=== PATIENT | female | born 1980 | race Caucasian/White ===

== ENCOUNTER 2021-12-28 17:07 | Inpatient (IN) | payer OTHER, SELFPAY ==
[2021-12-28] VITALS (28 sets, daily range): BP systolic 107–216; BP diastolic 75–119; PULSE 70–95; RESP 13–27; TEMP 36.1–36.6; O2SAT 2–100; BMI 35.3; BMI 32.9
--- NOTE | 2021-12-28 17:10 | CT_ITS ---
We are attempting to reach an attending provider to discuss findings. An addendum with communication details will be sent when the communication is complete. EXAMINATION : Head CT w/out contrast HISTORY : Neuro deficit, acute, stroke suspected COMPARISON : None. TECHNIQUE : Multiple contiguous axial images were obtained from the skull base to the vertex without intravenous contrast. A radiation dose optimization technique was used for this scan. FINDINGS : The ventricles and sulci are normal in size. There is no evidence for acute intracranial hemorrhage, mass effect, or midline shift. There is no extra-axial fluid collection. There is normal young-white differentiation, without CT evidence of acute ischemia or infarct. The skull base and calvarium are unremarkable. The orbits are unremarkable. The paranasal sinuses are clear. The mastoid air cells are well-aerated. The soft tissues are unremarkable. CT/STROKE Brain/Head without Cont IMPRESSION: No acute intracranial abnormality. Electronically Signed: Donald Jimenez MD at 17:20 EDT ,
--- NOTE | 2021-12-28 17:10 | EKG12_ITS ---
Test Reason : STROKE Blood Pressure : / mmHG Vent. Rate : 078 BPM Atrial Rate : 078 BPM P-R Int : 156 ms QRS Dur : 076 ms QT Int : 378 ms P-R-T Axes : 038 046 148 degrees QTc Int : 430 ms Normal sinus rhythm Possible Left atrial enlargement ST & T wave abnormality, consider lateral ischemia Abnormal ECG No previous ECGs available Confirmed by JAMES LEVIN, JONATHAN ([id number]), marketing editor VIKAS BOYLE ([id number]) on 12/31/2021 7:19:35 AM Referred By: BAM Confirmed By:JONATHAN RAMIREZ MD
--- NOTE | 2021-12-28 17:11 | CT_ITS ---
We are attempting to reach an attending provider to discuss findings. An addendum with communication details will be sent when the communication is complete. STUDY: CTA HEAD AND NECK WITH CONTRAST REASON FOR EXAM: Female, 41 years old. Right-sided weakness. RADIATION DOSAGE (If Supplied By Facility): CTDIvol = ( 17.80 ) mGy, DLP = ( 698.44 ) mGycm TECHNIQUE: CT angiography was performed with a multi-detector CT scanner. Data acquisition was obtained from the skull base through the vertex following intravenous administration of IV 100mL Isovue-[id number]. MIP images were reconstructed from the axial data set. Post-processing of the angiographic images was performed, with multiplanar reformation and 3D reconstruction. Individualized dose optimization techniques were used for this CT. COMPARISON: CT of the head, December 28, 2021. FINDINGS: Normal bilateral petrous carotid arteries. Normal right cavernous carotid artery with a normal supraclinoid bifurcation. Normal left cavernous carotid artery with a normal supraclinoid bifurcation. Normal right A1 segments of the anterior cerebral artery. Normal left A1 segments of the anterior cerebral artery. Normal intact anterior communicating artery (ACOM). Normal bilateral A2 segments of the anterior cerebral arteries. Normal right M1 and M2 segments of the middle cerebral arteries, with a normal M1 bifurcation. Normal left M1 and M2 segments of the middle cerebral arteries, with a normal M1 bifurcation. Normal right posterior communicating artery (PCOM). Normal left posterior communicating artery (PCOM). Normal bilateral vertebral arteries. Normal basilar artery with a normal basilar bifurcation. The visualized bilateral superior cerebellar (SCA) arteries are normal. Normal bilateral P1, P2 and visualized P3 segments of the posterior cerebral arteries. There is no demonstrated aneurysm of the [place] of [place]. There is no demonstrated abnormality of the visualized brain. AORTIC ARCH: Normal visualized aortic arch. Normal origins of the brachiocephalic, left common carotid, and left subclavian arteries. RIGHT CAROTID ARTERIES: Normal right common carotid artery (CCA). Normal right common carotid bulb. Normal origin of the right internal carotid (ICA) artery without a hemodynamically significant stenosis. Tortuous visualized cervical portion of the right internal carotid artery. Normal origin of the right external carotid artery (ECA). LEFT CAROTID ARTERIES: Normal left common carotid artery (CCA). Normal left common carotid bulb. Normal origin of the left internal carotid (ICA) artery without a hemodynamically significant stenosis. Tortuous visualized cervical portion of the left internal carotid artery. Normal origin of the left external carotid artery (ECA). VERTEBRAL ARTERIES: Normal bilateral vertebral arteries. The left is slightly dominant. CT/STROKE CTA Head AND Neck W/Con IMPRESSION: Normal CTA Head and neck with contrast. Electronically Signed: Cosme Odom DO at 17:39 EDT ,
--- NOTE | 2021-12-28 17:11 | EDS_ITS ---
HPI History of Present Illness Chief Complaint: Stroke Alert Narrative Narrative: 41-year-old female with no past history comes in with acute onset of right-sided facial droop, right-sided weakness. Symptoms have been constant, severe without alleviating exacerbating features. Last known well was 1630. PFSH PFSH Medical History Obesity Tobacco use Medical History no medical history no medical history Allergy/AdvReac Type Severity Reaction Status Date / Time peanut Allergy PT UNSURE Verified 12/28/21 17:15 OF REACTION Penicillins Allergy PT UNSURE Verified 12/28/21 17:15 OF REACTION Family History (Updated 12/28/21 @ 18:[address] Brii Pryor MD) Mother Diabetes Family History no significant family his no significant family history Surgical History (Updated 12/28/21 @ 18:[address] Brii Pryor MD) History of dental surgery Surgical History no surgical history no surgical history Social History (Updated 12/28/21 @ 18:[address] Brii Pryor MD) household members: spouse Smoking Status: Current every day smoker tobacco type: cigarettes Smoking packs per day: 1 Smoking cigarettes per day: 20.0 Years smoked: 27 Smoking pack-years: 27.00 alcohol intake: never substance use type: does not use ROS ROS ED ROS Narrative Constitutional: Denies fever HEENT: Denies sore throat Neck: Denies neck pain Cardiovascular: Denies chest pain, syncope Respiratory: Denies shortness of breath GI: Denies nausea vomiting or abdominal pain : Denies changes in urinary habits Musculoskeletal: Denies muscle or joint pain Neurologic: Endorses right-sided weakness, facial drooping, dysarthria Skin denies rash EXAM Physical Exam Narrative Exam Narrative: Nursing triage notes reviewed, Vital signs reviewed Constitutional: please see mdm HENT: MMM Eyes: Pupils equal round and reactive to light, Extraocular muscles intact Neck: No stridor, no JVD, full neck ROM Lungs: Clear to auscultation, No wheezing or rales. No increased work of breathing, no conversational dyspnea, no accessory muscle use, no nasal flaring. No respiratory distress noted Heart: Regular rate and rhythm, No murmurs, No rubs and No gallops, 2+ distal pulses (radial, femoral, posterior tibial) in all extremities Abdomen: Soft, there is no tenderness, rigidity, rebound or guarding, no obvious peritoneal signs, no palpable pulsatile abdominal masses, no auscultated abdominal bruit : No CVAT Extremities: No edema Neuro: Right-sided facial droop, slurred speech, right upper arm weakness, flaccid right lower extremity, initial NIH 6 Skin: No rash or lesions noted Const Vital Signs: 12/28/21 17:14 12/28/21 17:16 12/28/21 17:20 Temperature 97 F L Temperature Source Temporal Pulse Rate 83 95 Respiratory Rate 18 27 H Blood Pressure 184/119 H 216/103 H Blood Pressure Mean 140 140 Blood Pressure Source Blood Pressure Position Blood Pressure Location Pulse Ox 97 97 95 Oxygen Delivery Method Nasal Cannula Nasal Cannula Room Air Oxygen Flow Rate (L/min) 2 2 12/28/21 17:20 12/28/21 17:40 12/28/21 17:48 Temperature Temperature Source Pulse Rate 95 77 72 Respiratory Rate 27 H 13 18 Blood Pressure 216/103 H 190/112 H 190/111 H Blood Pressure Mean 140 138 137 Blood Pressure Source Blood Pressure Position Blood Pressure Location Pulse Ox 95 99 99 Oxygen Delivery Method Room Air Nasal Cannula Nasal Cannula Oxygen Flow Rate (L/min) 2 2 12/28/21 18:06 12/28/21 18:12 12/28/21 18:06 Temperature Temperature Source Pulse Rate 72 Respiratory Rate 18 Blood Pressure 177/106 H 177/106 H 177/106 H Blood Pressure Mean 129 129 Blood Pressure Source Blood Pressure Position Blood Pressure Location Pulse Ox 98 Oxygen Delivery Method Room Air Oxygen Flow Rate (L/min) 12/28/21 18:25 Temperature Temperature Source Pulse Rate 74 Respiratory Rate 18 Blood Pressure 154/107 H Blood Pressure Mean 122 Blood Pressure Source Monitor Blood Pressure Position Semi-Fowlers Blood Pressure Location Right Arm Pulse Ox 97 Oxygen Delivery Method Nasal Cannula Oxygen Flow Rate (L/min) 2 MDM MDM MDM Narrative Medical decision making narrative: 41-year-old female here with acute onset of right-sided facial droop, right- sided weakness, initial NIHSS of 6. She was within the stroke window. She was not on any anticoagulation no obviously apparent tPA contraindications. Activated stroke team immediately. IV placed by EMS. Upon arrival the patient was sent directly to CT scan. CT, CT of the head neck scans showed no acute process, no ICH. Consulted stroke neurology immediately. Stroke neurology evaluate the patient at the bedside and recommended no tPA. On re-evaluation the patient again developed focal neurologic deficits concerning for acute CVA. This time patient's blood pressure was noted to be 220 systolic over 110s diastolic. Concern for hypertensive emergency. Did give 1 dose of 20 mg labetalol to decrease the patient's blood pressure approximately 20%, in an attempt to preserve the ischemic penumbra. This was successful the patient's neurologic deficits resolved with a repeat NIHSS of 0. Several minutes later was called back into the room as patient again had focal neurologic deficits with NIH of 5 this point time patient displayed slurred speech, dominant hand weakness, dysarthria, facial droop. Given significant findings I recommended tPA for the patient. I did not want to continue to delay tPA as its efficacy decreases with time. Shared decision making discussion was undertaken with the patient and her . They displayed capacity to make their own medical decisions and made the decision in the affirmative to undergo tPA treatment. I thought this is the best decision as the longer we delay tPA treatment the less likely to be beneficial. Patient was given tPA. Admitted to ICU under Dr. Pryor for post TPA care, MRI, telemetry. Lab Data Attestation: I reviewed the patient's lab results. Lab results narrative: CBC with leukocytosis suggestive of systemic inflammation, no sniffing anemia, no thrombocytopenia PT, INR, PTT without evidence of coagulopathy BMP without evidence of significant electrolyte abnormalities, anion gap acute kidney Troponin is negative, no evidence of myocardial ischemia Labs: Laboratory Results - last 24 hr 12/28/21 12/28/21 12/28/21 17:12 17:12 17:12 WBC 17.2 H RBC 5.03 Hgb 15.1 H Hct 44.1 MCV 87.7 MCH 30.0 MCHC 34.2 RDW Std Deviation 44.4 H RDW Coeff of Stacy 13.6 Plt Count 339 MPV 10.2 Immature Gran % (Auto) 0.500 Neut % (Auto) 67.1 Lymph % (Auto) 23.5 Mineral % (Auto) 7.0 Eos % (Auto) 1.5 Baso % (Auto) 0.4 Absolute Neuts (auto) 11.6 H Absolute Lymphs (auto) 4.04 Nucleated RBC % 0 PT 12.6 INR 1.0 APTT 28.6 Sodium 137 Potassium 3.7 Chloride 106 Carbon Dioxide 27.0 Anion Gap 4 L BUN 9 Creatinine 0.79 Estim Creat Clear Calc 83.48 Est GFR (MDRD) Af Amer 103 Est GFR (MDRD) Non-Af 85 BUN/Creatinine Ratio 11.4 Glucose 110 H Hemoglobin A1c Calcium 9.8 Magnesium Troponin I High Sens 8 TSH COVID-19 ([facility]INA) 12/28/21 12/28/21 12/28/21 17:12 17:12 17:50 WBC RBC Hgb Hct MCV MCH MCHC RDW Std Deviation RDW Coeff of Stacy Plt Count MPV Immature Gran % (Auto) Neut % (Auto) Lymph % (Auto) Mineral % (Auto) Eos % (Auto) Baso % (Auto) Absolute Neuts (auto) Absolute Lymphs (auto) Nucleated RBC % PT INR APTT Sodium Potassium Chloride Carbon Dioxide Anion Gap BUN Creatinine Estim Creat Clear Calc Est GFR (MDRD) Af Amer Est GFR (MDRD) Non-Af BUN/Creatinine Ratio Glucose Hemoglobin A1c 6.1 H Calcium Magnesium 2.1 Troponin I High Sens TSH 1.49 COVID-19 ([facility]INA) Not Detected Radiography Diagnostic Testing: Clinical Impression(s) from Imaging Studies Brain CT 12/28/21 17:10 IMPRESSION: No acute intracranial abnormality. Electronically Signed: Donald Jimenez MD at 17:20 EDT , ADDENDUM: 12/28/21 1731 IMPRESSION: No acute intracranial abnormality. N.B. : The above Results were Read Back by Donald Jimenez MD to MURIEL MONREAL MD, and understanding confirmed on 12/28/2021 17:24:17 (ET). Electronically Signed: Donald Jimenez MD at 17:20 EDT , Head/Neck CTA 12/28/21 17:11 IMPRESSION: Normal CTA Head and neck with contrast. Electronically Signed: Cosme Odom DO at 17:39 EDT Reading Location ID and State: [facility] / [place] Tel [phone], Service support , ADDENDUM: 12/28/21 1746 IMPRESSION: Normal CTA Head and neck with contrast. N.B. : The above Results were Read Back by Cosme Odom DO to MURIEL MONREAL MD, and understanding confirmed on 12/28/2021 17:39:28 (ET). Electronically Signed: Cosme Odom DO at 17:39 EDT Reading Location ID and State: [address] [place] [address] Tel [phone], Service support , EKG Initial EKG: Attestation: I personally reviewed and interpreted this EKG as follows: Comments: EKG Critical Care Time Critical Care Time: Yes Critical care time (excluding procedures): 30-74 minutes Discharge Plan Dx/Rx/DC Orders Clinical Impression: CVA (cerebral vascular accident) Disposition Disposition: Acute Care Hospital [facility] Discharge Date/Time: 12/28/21 18:55
[2021-12-28 17:19] LABS: Absolute Lymphocyte Count 4.04 X10^3/uL (0.83-4.51); Absolute Neutrophil Count 11.6 X10^3/uL (2.0-7.7); Basophil# 0.07 X10^3/uL; Basophil% 0.4 % (0-1); Eosinophil# 0.26 X10^3/uL; Eosinophils% 1.5 % (0-5); Hematocrit 44.1 % (37-47); Hemoglobin 15.1 g/dL (12.0-15.0); Lymphocyte # 4.04 X10^3/ul (0.83-4.51); Lymphocyte % 23.5 % (19-41); Mean Corp Hgb Conc 34.2 g/dL (32-36); Mean Corpuscular Volume 87.7 fL (81-99); Mean Platelet Vol. 10.2 fl (6.2-12.0); Monocyte# 1.21 X10^3/uL; NRBC Flagged by Analyzer 0 % (0-5); Neutrophil # 11.55 X10^3/uL (2.7-7.7); Neutrophil % 67.1 % (47-70); Platelet Count 339 K/mm3 (150-450); RBC Distribution Width CV 13.6 % (11.6-14.6); RBC Distribution Width SD 44.4 fl (35.1-43.9); Red Blood Count 5.03 M/mm3 (4.2-5.4); White Blood Count 17.2 K/mm3 (4.4-11.0)
[2021-12-28] MEDS: Ondansetron 4 MG/2 ML Vial IV (17:23)
--- NOTE | 2021-12-28 17:27 | ED.RN ---
WHEN DR LORA EVALUATED THE PT IN THE BAY BEFORE CT SCAN, PT HAD NIH OF 6. Right sided weakness and slurred speech. When NIH was performed when pt returned back to room, NIH was 1 for dysarthia. currently on telestroke with [facility]
[2021-12-28 17:29] LABS: Prothrombin Time (Protime)PT. 12.6 SECONDS (11.7-14.9)
[2021-12-28 17:30] LABS: Partial Thromboplast Time 28.6 Seconds (24.1-36.2)
--- NOTE | 2021-12-28 17:30 | CM.ED ---
Social Work Responding to stroke alert. Patient alert and orient/talking with staff. Patient spouse present and presenting appropriately. Will continue to follow if any needs arise. Janette Gonzalez MSW, FLO-S
[2021-12-28] MEDS: Labetalol (Prefilled) 20 MG/4 ML IV (17:34)
[2021-12-28 17:39] LABS: Anion Gap 4 (5-15); BUN 9 mg/dL (7-18); BUN/Creat Ratio 11.4 RATIO (10-20); Calcium,Total 9.8 mg/dL (8.5-10.1); Chloride 106 mmol/L (98-107); Creatinine, Serum 0.79 mg/dL (0.55-1.02); EST Glomerular Filtration Rate 85 mL/min (>60); Est Glom Filt Rate - Afr Amer 103 mL/min (>60); Estimated Creatinine Clearance 83.48 ml/min; Glucose 110 mg/dL (74-106); Potassium 3.7 mmol/L (3.5-5.1); Sodium Level 137 mmol/L (136-145); Troponin-I HS 8 pg/mL (3.0-54.0)
--- NOTE | 2021-12-28 17:40 | ED.RN ---
1740- NIH IS 0 BP 190/112. PER DR LORA, NO NEED FOR MORE LABETALOL AT THE MOMENT. NO TPA
--- NOTE | 2021-12-28 17:51 | ED.RN ---
DR MADELYN RUIZ AT BEDSIDE, PT BEGAN TO HAVE SLURRED SPEECH AGAIN, RIGHT SIDED WEAKNESS, AND RIGHT FACIAL DROOP. DR MONREAL CALLED TO BEDSIDE.
[2021-12-28] MEDS: Labetalol (Prefilled) 20 MG/4 ML 10 MG IV ×2 (17:57→18:19)
--- NOTE | 2021-12-28 18:06 | PCM.HP.STD ---
HPI - General General Date of Admission: 12/28/21 Date of Service: 12/28/21 Chief Complaint: R sided weakness, facial droop, slurred speech. HPI Narrative The patient is a 41 y/o F w/ PMHx: Tobacco use, Obesity who presents to the [facility] ED on 12/28/21 with history of onset R sided weakness and facial droop with last known well at 1630 on day of presentation prompting ED evaluation. Initial NIHSS 6 per ED physician however patient did wax and wane and was initially improved upon Hospitalist evaluation but had recurrent sxs with NIHSS 5 therefore decision to initiate TPA given closing window and frequently recurrent sxs that would be life long debilitating. She does recent history of upper respiratory type infection with frontal headache, congestion, rhinorrhea, sore throat with mild cough, fatigue and malaise with no specific fevers or chills nor any nausea, emesis or diarrhea and does also report that she has never been vaccinated against COVID. Her who is present denies any recent symptoms himself. She denies taking any control. Work-up in the ED included T 97, heart rate 83, BP 184/119, respiratory rate 18, 97% on 2 L nasal cannula, CBC with WBC 17.2, Hgb 15.2, Plts 339 with L shift, coags unremarkable, BMP with glucose 110, troponin 8, EKG with sinus rhythm with nonspecific changes with no acute evidence of ischemia CT head with no acute intracranial findings, CTA head and neck with no acute findings. In the ED patient initiated on TPA. Stroke alert called on the patient and as noted initially given improvement deferred TPA but given recurrent sxs pathway eventually initiated. Discussed current status with ED physician and given age requested COVID PCR, urine drug screen and hypercoagulable panel to be cautious as well as given limitation of inability to draw labs. [facility] Medical History Obesity Tobacco use Medical History no medical history Allergy/AdvReac Type Severity Reaction Status Date / Time peanut Allergy PT UNSURE Verified 12/28/21 17:15 OF REACTION Penicillins Allergy PT UNSURE Verified 12/28/21 17:15 OF REACTION Family History (Updated 12/28/21 @ 18:[address] Brii Pryor MD) Mother Diabetes Family History no significant family his other (Denies any marked paternal family history including HD, DM, CA, CVA.) Surgical History (Updated 12/28/21 @ 18:[address] Brii Pryor MD) History of dental surgery Surgical History no surgical history Social History (Updated 12/28/21 @ 18:[address] Brii Pryor MD) household members: spouse Smoking Status: Current every day smoker tobacco type: cigarettes Smoking packs per day: 1 Smoking cigarettes per day: 20.0 Years smoked: 27 Smoking pack-years: 27.00 alcohol intake: never substance use type: does not use ROS ROS Narrative Admission Review of Systems: CONSTITUTIONAL: No weight loss, fever, chills, + weakness or fatigue. HEENT: + R sided facial droop, slurred speech, recent frontal [place], congestion, sore throat, rhinorrhea. Eyes: No visual loss, blurred vision, double vision or yellow sclerae. Ears, Nose, Throat: No hearing loss, sneezing. SKIN: No rash or itching, lesions, wounds. CARDIOVASCULAR: No chest pain, chest pressure or chest discomfort, palpitations, edema, orthopnea, syncopal events. RESPIRATORY: = Cough. No shortness of breath, wheezing, hemoptysis. GASTROINTESTINAL: No anorexia, nausea, vomiting or diarrhea, abdominal pain, melena, BRBPR. GENITOURINARY: No dysuria, frequency, urgency or retention. NEUROLOGICAL: + R sided facial droop, slurred speech, R sided paresthesias, weakness, headache. No dizziness, syncope, paralysis, ataxia, change in bowel or bladder control, seizure. MUSCULOSKELETAL:+ muscle, back pain, joint pain or stiffness. HEMATOLOGIC: No anemia, bleeding or bruising. LYMPHATICS: No enlarged nodes. No history of splenectomy. PSYCHIATRIC: No history of depression or anxiety. ENDOCRINOLOGIC: No reports of sweating, cold or heat intolerance. No polyuria or polydipsia. ALLERGIES: No history of asthma, hives, eczema or rhinitis. Vital Signs Vital Signs Vital Signs: 12/28/21 17:14 12/28/21 17:16 12/28/21 17:20 Temperature 97 F L Temperature Source Temporal Pulse Rate 83 95 Respiratory Rate 18 27 H Blood Pressure 184/119 H 216/103 H Blood Pressure Mean 140 140 Pulse Ox 97 97 95 Oxygen Delivery Method Nasal Cannula Nasal Cannula Room Air Oxygen Flow Rate (L/min) 2 2 12/28/21 17:20 12/28/21 17:40 12/28/21 17:48 Temperature Temperature Source Pulse Rate 95 77 72 Respiratory Rate 27 H 13 18 Blood Pressure 216/103 H 190/112 H 190/111 H Blood Pressure Mean 140 138 137 Pulse Ox 95 99 99 Oxygen Delivery Method Room Air Nasal Cannula Nasal Cannula Oxygen Flow Rate (L/min) 2 2 12/28/21 18:06 Temperature Temperature Source Pulse Rate Respiratory Rate Blood Pressure 177/106 H Blood Pressure Mean 129 Pulse Ox Oxygen Delivery Method Oxygen Flow Rate (L/min) Weight Weight: 212 lb 4.882 oz Body Mass Index (BMI) 35.3 Physical Exam Narrative Physical Examination: General: Awake, alert, oriented x 3, slurred speech as recurrent symptoms with evident right-sided facial droop, remains cooperative, anxious expectantly, seated upright in the ED bed. Skin: Normal color, normal turgor, no icterus, no cyanosis. HEENT: AT/NC, EOMI, PERRLA, MMM, right-sided facial droop more pronounced with smiling, poor dentition with significant dental surgery history, no carotid bruits or JVD noted. Lungs: Mildly diminished, greater bases, appropriate effort no rales, ronchi or wheezing. Heart: Regular rate and rhythm; no gallop, rub audible. Abdomen: Soft, obese, NTTP, ND, normal BS, no HSM. Extremities: No cyanosis, clubbing, or edema. Neurological: Patient awake, alert, oriented as noted, cognitive function intact but very anxious given acute presentation; pupils equally reactive to light and accommodation, field of vision intact, cranial nerves grossly intact except notable right-sided facial droop and sensation decreased to the right side, moving all extremities except right upper and lower extremity drift, sensation to the right side in addition to the face decreased, altered slurred speech is noted, equivocal Babinski, appropriate HTS/FTS although somewhat more perfunctory on the right side. Psychiatric: Affect appears anxious given acute presentation, no history of underlying depression anxiety but given circumstance this presentation is expected. Results Lab / Micro Data Result Diagrams: 12/28/21 17:12 12/28/21 17:12 Labs: Laboratory Results - last 24 hr 12/28/21 17:12: WBC 17.2 H, RBC 5.03, Hgb 15.1 H, Hct 44.1, MCV 87.7, MCH 30.0, MCHC 34.2, RDW Std Deviation 44.4 H, RDW Coeff of Stacy 13.6, Plt Count 339, MPV 10.2, Immature Gran % (Auto) 0.500, Neut % (Auto) 67.1, Lymph % (Auto) 23.5, [place] % (Auto) 7.0, Eos % (Auto) 1.5, Baso % (Auto) 0.4, Absolute Neuts (auto) 11.6 H, Absolute Lymphs (auto) 4.04, Nucleated RBC % 0 12/28/21 17:12: PT 12.6, INR 1.0, APTT 28.6 12/28/21 17:12: Sodium 137, Potassium 3.7, Chloride 106, Carbon Dioxide 27.0, Anion Gap 4 L, BUN 9, Creatinine 0.79, Estim Creat Clear Calc 83.48, Est GFR (MDRD) Af Amer 103, Est GFR (MDRD) Non-Af 85, BUN/Creatinine Ratio 11.4, Glucose 110 H, Calcium 9.8, Troponin I High Sens [address] 12/28/21 17:10 IMPRESSION: No acute intracranial abnormality. Electronically Signed: Donald Jimenez MD at 17:20 EDT , ADDENDUM: 12/28/21 1731 IMPRESSION: No acute intracranial abnormality. N.B. : The above Results were Read Back by Donald Jimenez MD to MURIEL MONREAL MD, and understanding confirmed on 12/28/2021 17:24:17 (ET). Electronically Signed: Donald Jimenez MD at 17:20 EDT , Head/Neck CTA 12/28/21 17:11 IMPRESSION: Normal CTA Head and neck with contrast. Electronically Signed: Cosme Odom DO at 17:39 EDT Reading Location ID and State: [facility] / [place] Tel [phone], Service support , ADDENDUM: 12/28/21 1746 IMPRESSION: Normal CTA Head and neck with contrast. N.B. : The above Results were Read Back by Cosme Odom DO to MURIEL MONREAL MD, and understanding confirmed on 12/28/2021 17:39:28 (ET). Electronically Signed: Cosme Odom DO at 17:39 EDT Reading Location ID and State: [facility] / [place] Tel [phone], Service support , Assessment & Plan Assessment/Plan (1) CVA (cerebral vascular accident): PLAN: Plan The patient is a 41 y/o F w/ PMHx: Tobacco use, Obesity who presents to the [facility] ED on 12/28/21 with history of onset R sided weakness and facial droop with last known well at 1630 on day of presentation prompting ED evaluation initially NIH stroke scale 6 however waxed and waned with eventual tPA administration. #1. Right-sided weakness, right-sided facial droop concerning for CVA: Will admit to the ICU, will obtain MRI Brain, ECHO, PT/OT/Speech/Nutrition evaluation per protocol. Will allow permissive HTN with as needed agents per stroke protocol, given current presentation and tPA candidate will hold on aspirin administration until repeat CT head in 24 hours following tPA administration although as noted we will also order MRI and if MRI is obtained at 24 kusum would not need an additional CT head at that time, add high-dose statin, magnesium, TSH, FLP, HgbA1c requested. Maintain on aspiration and fall precautions. UDS as well as hypercoagulable panel and COVID PCR to be cautious. We will request reconsultation with neurology just prior to the 24-hour kusum per protocol. #2. Elevated BP without HTN diagnosis, possible HTN Emergency given #1 given lower risk factors for acute presentation but awaiting full work-up: Given presentation will maintain permissive HTN with treatment parameters per stroke procotol in the setting of TPA treatment with at this time usage of potentially Cardene drip given significantly elevated blood pressure and tPA administration with IV Lopressor administered in the ED with some improvement in order to consider tPA administration. #3. Recent URI, possibly acute COVID viral syndrome: Patient with recent upper respiratory type symptoms, possibly COVID, COVID PCR is pending if positive would also obtain sputum cultures, full respiratory viral panel and urine antigens, obtain D-dimer, procalcitonin, CRP, CPK, Ferritin, LDH and BNP, continue supportive care, if 94% or less oxygenation or supplementation needs would start IV decadron. Given timeline would not be a remdesivir candidate. #4. Tobacco Abuse: Encouraged cessation, inpatient consultation per RT, NR if desired. #5. Obesity: Weight loss and lifestyle changes encouraged. #6. DVT prophylaxis: SCDs, holding chemoprophylaxis given TPA administration as noted. Charges/Coding Visit Charges Inpatient E&M: 57390 Init Hosp L3
--- NOTE | 2021-12-28 18:32 | RAD_ITS ---
INDICATION: Neuro deficit, acute, stroke suspected EXAMINATION/TECHNIQUE: X-RAY - XR Chest 1 View COMPARISON: None. FINDINGS: Patchy airspace opacities The cardiomediastinal silhouette is unremarkable. No pleural effusion or pneumothorax. No acute osseous abnormalities. RAD/Chest 1 View IMPRESSION: Patchy airspace opacities may represent edema and/or infection. Electronically Signed: Donald Jimenez MD at 20:13 EDT ,
--- NOTE | 2021-12-28 18:49 | ED.RN ---
TPA GTT STARTED AT 1814, STILL INFUSING AT THIS TIME.
--- NOTE | 2021-12-28 18:56 | ED.RN ---
NIH AT 1855 STILL 5, TPA GTT STILL GOING AT THIS TIME. TAKING PT TO ICU.
[2021-12-28 19:00] LABS: Internal QC Validated? YES +Cl - CLEAR BKGD; Pregnancy, Urine Negative Negative
--- NOTE | 2021-12-28 19:05 | NURSING ---
Pt arrived to ICU rm2, stated quickly I feel it happening. Pt referring to blurred vision/eye pain, Rt side sensation change and increasing weakness. 1920-Sx resolved, pt speech clear and able to describe more clearly what she was experiencing at he time. Pt stated that neuro events start w/a burning sensation behind Rt eye, progress to tongue numbness w/expressive dysphasia on Rt side and then weakness to Rt side extremities. Pt states it less scary now that she knows what to expect.
--- NOTE | 2021-12-28 19:08 | TELEMED_ITS ---
[facility] Tele[facility] has confirmed receipt of a request for visit. This document confirms receipt of the order initiating the consult. To find the results of the consultation, please view the patient's reports for the scanned Telemed Consult.
--- NOTE | 2021-12-28 19:08 | ECHOD_ITS ---
Reason For Study: CVA Procedure This was a 2D Doppler, Color Flow transthoracic echocardiogram. Exam performed portable in ICU/CCU. Left Ventricle Normal LV size. Moderate concentric left ventricular hypertrophy. The left ventricular ejection fraction is 65 %. Diastolic function is indeterminate. Right Ventricle Normal right ventricle. Atria The left and right atria are normal. Lipomatous hypertrophy of the atrial septum. Bubble contrast study negative for right to left interatrial shunt. Mitral Valve Trivial mitral valve insufficiency. Tricuspid Valve Trivial tricuspid valve insufficiency. Unable to estimate RV systolic pressure due to insufficient tricuspid regurgitant envelope. Aortic Valve Normal aortic valve. Pulmonic Valve The pulmonic valve is not well visualized. Great Vessels Normal sized aortic root. Pericardium/Pleural No pericardial effusion. Medication Performed a rapid injection of agitated mix of 9 cc saline and 1cc air to assess for atrial septal defect. MMode/2D Measurements & Calculations LVIDd: 4.8 cm IVSd: 1.7 cm Ao root diam: 3.2 cm LVIDs: 3.1 cm LVPWd: 1.5 cm FS: 35.0 % LAV(MOD-sp4): 69.3 ml LVAd ap4: 31.5 cm2 SV(MOD-sp4): 67.6 ml LVLd ap4: 8.1 cm EDV(MOD-sp4): 102.9 ml EDV(sp4-el): 104.8 ml LVAs ap4: 15.6 cm2 LVLs ap4: 5.9 cm ESV(MOD-sp4): 35.3 ml ESV(sp4-el): 34.9 ml EF(MOD-sp4): 65.7 % EF(sp4-el): 66.6 % SV(sp4-el): 69.8 ml LA A4 area: 20.3 cm2 LA dimension(2D): 3.3 cm RA A4 area: 17.6 cm2 Time Measurements MV dec time: 0.20 sec Doppler Measurements & Calculations MV E max nasir: 94.1 cm/sec Lat Peak E' Nasir: 5.4 cm/sec Med Peak E' Nasir: 5.3 cm/sec MV A max nasir: 79.5 cm/sec E/E' lat: 17.4 E/E' med: 17.9 MV E/A: 1.2 MV V2 max: 107.6 cm/sec MV dec slope: 478.9 cm/sec2 Ao V2 max: 142.6 cm/sec MV max P.6 mmHg Ao max P.1 mmHg MV V2 mean: 70.8 cm/sec Ao V2 mean: 99.8 cm/sec MV mean P.3 mmHg Ao mean P.5 mmHg MV V2 VTI: 28.8 cm Ao V2 VTI: 29.6 cm PA V2 max: 92.5 cm/sec PA V2 mean: 67.3 cm/sec ECHO/Echo Complete Interpretation Summary Moderate concentric left ventricular hypertrophy. The left ventricular ejection fraction is 65 %. Diastolic function is indeterminate. Lipomatous hypertrophy of the atrial septum. Bubble contrast study negative for right to left interatrial shunt. Ordering Physician: Brii Pryor Referring Physician: STACEY PCP Performed By: Selena Rock RCS
--- NOTE | 2021-12-28 19:08 | MRI_ITS ---
We are attempting to reach an attending provider to discuss findings. An addendum with communication details will be sent when the communication is complete. STUDY: MRI BRAIN WITHOUT CONTRAST REASON FOR EXAM: Female, 41 years old. CVA -- MRI 24 hours after IV alteplase TECHNIQUE: Standardized multiplanar fat and water weighted pulse sequences were obtained. COMPARISON: CT of the brain 12/29/2021 FINDINGS: Normal size of the ventricles and extra-axial spaces for the patient''s age. There are a few scattered tiny punctate white matter lesions bilaterally without mass effect or restricted diffusion There is restricted diffusion within the left pontine body consistent with acute infarct Normal bilateral basal ganglia. Normal thalami. There is no extra-axial fluid accumulation. Normal flow voids within the major intracranial circulation suggesting patency by spin echo criteria. Partial empty sella deformity. Normal, infundibular stalk, optic chiasm and hypothalamus. Normal tectal plate and pineal gland. Normal midbrain, and medulla. Normal cerebellum. Normal basal cisterns. Normal bilateral temporal bones. Normal bilateral internal auditory canals. No demonstrated orbital abnormality, within the constraints of a routine brain study. Normal visualized paranasal sinuses. Normal calvarium and skull base. Normal visualized soft tissue structures. Normal visualized upper cervical spine. MRI/Brain without Contrast IMPRESSION: 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 Minor periventricular white matter ischemic change without evidence for acute infarct Electronically Signed: Brayden Pitts MD at 19:56 EDT ,
[2021-12-28 19:14] LABS: Amphetamine Urine VISTA NEGATIVE (<1000 ng/mL); Barbiturate Urine VISTA NEGATIVE (< 200 ng/mL); Benzodiazepine Urine VISTA NEGATIVE (< 200 ng/mL); Cocaine Urine VISTA NEGATIVE (< 300 ng/mL); Ecstacy Urine VISTA NEGATIVE (< 500 ng/mL); Methadone Urine VISTA NEGATIVE (< 300 ng/mL); PCP Urine VISTA NEGATIVE (< 25 ng/mL); THC Urine VISTA NEGATIVE (< 50 ng/mL); Vista UDS pH Range 7
[2021-12-28 19:36] LABS: Hemoglobin A1c 6.1 % (3.8-5.6)
[2021-12-28 19:38] LABS: Magnesium 2.1 mg/dL (1.6-2.6); Thyroid Stim Hormone (TSH) 1.49 uIU/mL (0.358-3.74)
[2021-12-28] MEDS: 0.9% Normal Saline 1,000 ML 100 ML IV (20:00)
--- NOTE | 2021-12-28 20:35 | NURSING ---
[facility] Tele[facility] online and assessing pt w/computer at foot of bed for exam. Pt's mother and spouse in room. Pt just beginning another episode of stroke Sx and becomes tearful. Emotional support provided by family, staff in room and MD online.
--- NOTE | 2021-12-28 21:53 | NURSING ---
2014 Pt stated that it was happening again When RN asked what was happening pt explained that she was getting burning in her right eye that is moving down into her face and tongue. Within a few minutes pt said the numbness had spread down her right arm and right leg. MD Haskins is aware of this event.
[2021-12-28] MEDS: guaiFENesin 600 MG Tablet PO (23:36)
[2021-12-29] VITALS (31 sets, daily range): BP systolic 114–178; BP diastolic 67–104; PULSE 70–92; RESP 15–27; TEMP 36.9–37.1; O2SAT 91–99; BMI 32.9
[2021-12-29 03:21] LABS: Absolute Lymphocyte Count 2.09 X10^3/uL (0.83-4.51); Absolute Neutrophil Count 10.6 X10^3/uL (2.0-7.7); Basophil# 0.06 X10^3/uL; Basophil% 0.4 % (0-1); Eosinophil# 0.07 X10^3/uL; Eosinophils% 0.5 % (0-5); Hematocrit 39.1 % (37-47); Hemoglobin 13.4 g/dL (12.0-15.0); Lymphocyte # 2.09 X10^3/ul (0.83-4.51); Lymphocyte % 15.3 % (19-41); Mean Corp Hgb Conc 34.3 g/dL (32-36); Mean Corpuscular Hgb 30.6 pg (27.0-32.0); Mean Corpuscular Volume 89.3 fL (81-99); Monocyte# 0.84 X10^3/uL; Monocyte% 6.1 % (0-10); NRBC Flagged by Analyzer 0 % (0-5); Neutrophil # 10.56 X10^3/uL (2.7-7.7); Neutrophil % 77.2 % (47-70); Platelet Count 284 K/mm3 (150-450); RBC Distribution Width SD 45.8 fl (35.1-43.9); Red Blood Count 4.38 M/mm3 (4.2-5.4); White Blood Count 13.7 K/mm3 (4.4-11.0)
[2021-12-29 04:25] LABS: ALB/GLOB Ratio 0.9 RATIO (0.9-2.4); AST(SGOT) 24 U/L (15-37); Alanine Aminotransfer ALT/SGPT 16 U/L (13-56); Albumin, Serum 3.5 g/dL (3.2-5.0); Alkaline Phosphatase 92 U/L (45-117); Anion Gap 1 (5-15); BUN 10 mg/dL (7-18); BUN/Creat Ratio 16.9 RATIO (10-20); Calcium,Total 8.7 mg/dL (8.5-10.1); Chloride 109 mmol/L (98-107); Cholesterol 168 mg/dL (200); Creatinine, Serum 0.59 mg/dL (0.55-1.02); EST Glomerular Filtration Rate 118 mL/min (>60); Est Glom Filt Rate - Afr Amer 143 mL/min (>60); Estimated Creatinine Clearance 111.77 ml/min; Globulin 3.8 g/dL (2.2-4.2); Glucose 105 mg/dL (74-106); High Density Lipoprotein 23 mg/dL; Potassium 5.3 mmol/L (3.5-5.1); Protein, Total 7.3 g/dL (6.4-8.2); Sodium Level 135 mmol/L (136-145); Triglycerides 187 mg/dL; Very Low Density Lipoprotein 37 mg/dL (5-40)
[2021-12-29] MEDS: 0.9% Normal Saline 1,000 ML 100 ML IV ×3 (05:07→23:52)
--- NOTE | 2021-12-29 05:39 | NURSING ---
Pt refusing SCDs at this time. She states they are uncombable and bother her legs. RN educated on why pt should wear the. Pt receptive to possibly try and wear them later. RN will pass this on in report with day shift staff.
[2021-12-29] MEDS: Acetaminophen 325 MG Tablet 650 MG PO (05:50)
[2021-12-29] MEDS: Ondansetron 4 MG/2 ML Vial IV ×2 (05:53→18:27)
--- NOTE | 2021-12-29 06:07 | EX.PCM.CONCC ---
Assessment & Plan Assessment/Plan (1) CVA (cerebral vascular accident): PLAN: Plan RECOMMENDATIONS: 1. Continue routine monitoring per post tPA protocol. 2. Maintain blood pressures within parameters as outlined by neurology investigations consultant. 3. PT/OT evaluations once repeat head imaging is complete. 4. Obtain echocardiogram. IMPRESSIONS: 1. Acute ischemic CVA status post tPA Plan to continue routine monitoring post tPA per protocol. Repeat head imaging is due this evening. Recommend as needed antihypertensive medications to maintain pressures within parameters as outlined by the neurological investigations consultant. PT/OT evaluations once repeat head imaging is completed. Obtain echocardiogram. 2. Obesity/chronic tobacco dependency Complicates care, management, recovery and prognosis. I personally spent 3 minutes discussing the deleterious effects of continued tobacco use with the patient, including modalities which could be utilized to achieve a smoke-free lifestyle. Nicotine replacement therapy can be offered to the patient while admitted to the hospital. This note was generated with [employer] dictation software. It may contain incorrect words, spelling, and punctuation that were not noted in checking the note before signing. HPI Consult Data Date of Consult: 12/30/21 HPI Narrative Reason for Consultation: CVA status post tPA HPI Narrative: The patient is a 41-year-old female, with a history as outlined below, who presented to the emergency department on December 28 with right-sided weakness and facial droop. The patient is not currently on any home medications. She has no history of any neurovascular conditions. On presentation to the emergency department, the patient was noted to be hypertensive with systolics in excess of 200 mmHg. Initial laboratory evaluation revealed a white blood cell count of 17,000. Coagulation profile was within normal limits. Chemistry profile was unremarkable. Toxicology screen was negative. COVID PCR was negative. CT head revealed no acute intracranial abnormality. CTA head and neck was unremarkable. In light of the waxing and waning nature of the patient's symptoms in the emergency department a consultation was obtained by neurology. tPA was discussed and felt to be indicated. Therefore, the medication was administered. The patient was subsequently admitted to the medical intensive care unit post infusion. [facility] Medical History Obesity Tobacco use Medical History no medical history Allergy/AdvReac Type Severity Reaction Status Date / Time peanut Allergy PT UNSURE Verified 12/28/21 17:15 OF REACTION Penicillins Allergy PT UNSURE Verified 12/28/21 17:15 OF REACTION Family History (Updated 12/28/21 @ 18:[address] Brii Pryor MD) Mother Diabetes Family History no significant family his Surgical History (Updated 12/28/21 @ 18:[address] Brii Pryor MD) History of dental surgery Surgical History no surgical history Social History (Updated 12/28/21 @ 18:[address] Brii Pryor MD) household members: spouse Smoking Status: Current every day smoker tobacco type: cigarettes Smoking packs per day: 1 Smoking cigarettes per day: 20.0 Years smoked: 27 Smoking pack-years: 27.00 alcohol intake: never substance use type: does not use ROS ROS Narrative 10 systems reviewed with pertinent positives as noted in the HPI above. Physical Exam Const alert and no apparent distress General Appearance: cooperative HEENT normocephalic, head/scalp atraumatic and moist oral mucous membranes Eyes PERRL, EOMs intact bilaterally and conjunctivae normal Neck supple General: trachea midline Chest inspection of chest normal Resp normal respiratory effort Auscultation: Negative for rales, rhonchi or wheezes Cardio regular rate and regular rhythm GI normal to inspection, nondistended, normoactive bowel sounds Extremity no clubbing, cyanosis or edema Skin no rashes or lesions noted Neuro oriented x3, CN's II-XII intact bilaterally, moves all extremities and no focal motor deficits Neuro Narrative: NIH currently 0 Psych cooperative and affect normal Lab / Micro Data Result Diagrams: 12/30/21 03:30 12/30/21 03:30 Labs: Laboratory Results - last 24 hr 12/28/21 17:12: WBC 17.2 H, RBC 5.03, Hgb 15.1 H, Hct 44.1, MCV 87.7, MCH 30.0, MCHC 34.2, RDW Std Deviation 44.4 H, RDW Coeff of Stacy 13.6, Plt Count 339, MPV 10.2, Immature Gran % (Auto) 0.500, Neut % (Auto) 67.1, Lymph % (Auto) 23.5, [place] % (Auto) 7.0, Eos % (Auto) 1.5, Baso % (Auto) 0.4, Absolute Neuts (auto) 11.6 H, Absolute Lymphs (auto) 4.04, Nucleated RBC % 0 12/28/21 17:12: PT 12.6, INR 1.0, APTT 28.6 12/28/21 17:12: Sodium 137, Potassium 3.7, Chloride 106, Carbon Dioxide 27.0, Anion Gap 4 L, BUN 9, Creatinine 0.79, Estim Creat Clear Calc 83.48, Est GFR (MDRD) Af Amer 103, Est GFR (MDRD) Non-Af 85, BUN/Creatinine Ratio 11.4, Glucose 110 H, Calcium 9.8, Troponin I High Sens 8 12/28/21 17:12: Magnesium 2.1, TSH 1.49 12/28/21 17:12: Hemoglobin A1c 6.1 H 12/28/21 17:50: COVID-19 ([facility]ATINA) Not Detected 12/28/21 18:50: Urine Opiates Screen NEGATIVE, Urine Methadone Screen NEGATIVE, Ur Barbiturates Screen NEGATIVE, Ur Phencyclidine Scrn NEGATIVE, Ur Amphetamines Screen NEGATIVE, MDMA (Ecstasy) Screen NEGATIVE, U Benzodiazepines Scrn NEGATIVE, Urine Cocaine Screen NEGATIVE, U Cannabinoids Screen NEGATIVE, Ur Drug Screen Comment 12/28/21 18:50: Urine Test Negative 12/29/21 03:10: WBC 13.7 H, RBC 4.38, Hgb 13.4, Hct 39.1, MCV 89.3, MCH 30.6, MCHC 34.3, RDW Std Deviation 45.8 H, RDW Coeff of Stacy 14.0, Plt Count 284, MPV 10.0, Immature Gran % (Auto) 0.500, Neut % (Auto) 77.2 H, Lymph % (Auto) 15.3 L, [place] % (Auto) 6.1, Eos % (Auto) 0.5, Baso % (Auto) 0.4, Absolute Neuts (auto) 10.6 H, Absolute Lymphs (auto) 2.09, Nucleated RBC % 0 12/29/21 03:10: Sodium Cancelled, Potassium Cancelled, Chloride Cancelled, Carbon Dioxide Cancelled, Anion Gap Cancelled, BUN Cancelled, Creatinine Cancelled, Estim Creat Clear Calc Cancelled, Est GFR (MDRD) Af Amer Cancelled, Est GFR (MDRD) Non-Af Cancelled, BUN/Creatinine Ratio Cancelled, Glucose Cancelled, Calcium Cancelled, Total Bilirubin Cancelled, AST Cancelled, ALT Cancelled, Alkaline Phosphatase Cancelled, Total Protein Cancelled, Albumin Cancelled, Globulin Cancelled, Albumin/Globulin Ratio Cancelled, Triglycerides Cancelled, Cholesterol Cancelled, LDL Cholesterol Cancelled, VLDL Cholesterol Cancelled, HDL Cholesterol Cancelled 12/29/21 04:00: Sodium 135 L, Potassium 5.3 H, Chloride 109 H, Carbon Dioxide 25.0, Anion Gap 1 L, BUN 10, Creatinine 0.59, Estim Creat Clear Calc 111.77, Est GFR (MDRD) Af Amer 143, Est GFR (MDRD) Non-Af 118, BUN/Creatinine Ratio 16.9, Glucose 105, Calcium 8.7, Total Bilirubin 1.00, AST 24, ALT 16, Alkaline Phosphatase 92, Total Protein 7.3, Albumin 3.5, Globulin 3.8, Albumin/Globulin Ratio 0.9, Triglycerides 187, Cholesterol 168, LDL Cholesterol 108, VLDL Cholesterol 37, HDL Cholesterol 23 L Radiology Impression Brain CT 12/28/21 17:10 IMPRESSION: No acute intracranial abnormality. Electronically Signed: Donald Jimenez MD at 17:20 EDT , ADDENDUM: 12/28/21 1731 IMPRESSION: No acute intracranial abnormality. N.B. : The above Results were Read Back by Donald Jimenez MD to MURIEL MONREAL MD, and understanding confirmed on 12/28/2021 17:24:17 (ET). Electronically Signed: Donald Jimenez MD at 17:20 EDT , Head/Neck CTA 12/28/21 17:11 IMPRESSION: Normal CTA Head and neck with contrast. Electronically Signed: Cosme Odom DO at 17:39 EDT Reading Location ID and State: [facility] / [place] Tel [phone], Service support , ADDENDUM: 12/28/21 1746 IMPRESSION: Normal CTA Head and neck with contrast. N.B. : The above Results were Read Back by Cosme Odom DO to MURIEL MONREAL MD, and understanding confirmed on 12/28/2021 17:39:28 (ET). Electronically Signed: Cosme Odom DO at 17:39 EDT Reading Location ID and State: [address] [place] [address] Tel [phone], Service support , Chest X-Ray 12/28/21 18:32 IMPRESSION: Patchy airspace opacities may represent edema and/or infection. Electronically Signed: Donald Jimenez MD at 20:13 EDT , Charges/Coding Visit Charges Inpatient E&M: 54171 Init Hosp L3 Behavior Interventions Behavior Intervention: 22394 Smoking Cessation 3-10 min
--- NOTE | 2021-12-29 06:26 | NURSING ---
Pts Blood pressure elevated above parameters from [id number] on 12/28. Veronica LEVIN was aware and was ok with pts blood pressure being elevated at this time. He gave ok for systolic blood pressure to not be treated until greater then 185. blood pressure was 187/104 once RN went to treat blood pressure it had regulated and RN did not give PRN medications.
--- NOTE | 2021-12-29 08:02 | PCM.PN.HOSP ---
Subjective Subjective Patient is a 41-year-old F who presented with right-sided weakness and slurred speech. An assessment of CVA was made patient did receive tPA and subsequently admitted to the intensive care unit Objective Data Objective Data Vital Signs: Vital Signs Temp Pulse Resp BP Pulse Ox O2 Del Method O2 Flow Rate 98.4 F 77 19 H 141/98 H 98 Nasal Cannula 2 12/29/21 07:00 12/29/21 07:49 12/29/21 07:00 12/29/21 07:00 12/29/21 07:00 12/29/21 07:00 12/29/21 07:00 Oxygen Flow Rate (L/min) 2 Oxygen Delivery Method Nasal Cannula Weight: 90.2 kg Body Mass Index (BMI) 32.9 Intake & Output: Intake and Output for Last 24 Hours 12/27/21 12/28/21 12/29/21 23:59 23:59 23:59 Intake Total 100 / 100 911.67 / 911.67 Output Total 600 / 700 275 / 275 Balance -500 / -600 636.67 / 636.67 Lab / Micro Data Result Diagrams: 12/29/21 03:10 12/29/21 04:00 Labs: Laboratory Results - last 24 hr 12/28/21 17:12: WBC 17.2 H, RBC 5.03, Hgb 15.1 H, Hct 44.1, MCV 87.7, MCH 30.0, MCHC 34.2, RDW Std Deviation 44.4 H, RDW Coeff of Stacy 13.6, Plt Count 339, MPV 10.2, Immature Gran % (Auto) 0.500, Neut % (Auto) 67.1, Lymph % (Auto) 23.5, [place] % (Auto) 7.0, Eos % (Auto) 1.5, Baso % (Auto) 0.4, Absolute Neuts (auto) 11.6 H, Absolute Lymphs (auto) 4.04, Nucleated RBC % 0 12/28/21 17:12: PT 12.6, INR 1.0, APTT 28.6 12/28/21 17:12: Sodium 137, Potassium 3.7, Chloride 106, Carbon Dioxide 27.0, Anion Gap 4 L, BUN 9, Creatinine 0.79, Estim Creat Clear Calc 83.48, Est GFR (MDRD) Af Amer 103, Est GFR (MDRD) Non-Af 85, BUN/Creatinine Ratio 11.4, Glucose 110 H, Calcium 9.8, Troponin I High Sens 8 12/28/21 17:12: Magnesium 2.1, TSH 1.49 12/28/21 17:12: Hemoglobin A1c 6.1 H 12/28/21 17:50: COVID-19 ([facility]ATINA) Not Detected 12/28/21 18:50: Urine Opiates Screen NEGATIVE, Urine Methadone Screen NEGATIVE, Ur Barbiturates Screen NEGATIVE, Ur Phencyclidine Scrn NEGATIVE, Ur Amphetamines Screen NEGATIVE, MDMA (Ecstasy) Screen NEGATIVE, U Benzodiazepines Scrn NEGATIVE, Urine Cocaine Screen NEGATIVE, U Cannabinoids Screen NEGATIVE, Ur Drug Screen Comment 12/28/21 18:50: Urine Test Negative 12/29/21 03:10: WBC 13.7 H, RBC 4.38, Hgb 13.4, Hct 39.1, MCV 89.3, MCH 30.6, MCHC 34.3, RDW Std Deviation 45.8 H, RDW Coeff of Stacy 14.0, Plt Count 284, MPV 10.0, Immature Gran % (Auto) 0.500, Neut % (Auto) 77.2 H, Lymph % (Auto) 15.3 L, [place] % (Auto) 6.1, Eos % (Auto) 0.5, Baso % (Auto) 0.4, Absolute Neuts (auto) 10.6 H, Absolute Lymphs (auto) 2.09, Nucleated RBC % 0 12/29/21 03:10: Sodium Cancelled, Potassium Cancelled, Chloride Cancelled, Carbon Dioxide Cancelled, Anion Gap Cancelled, BUN Cancelled, Creatinine Cancelled, Estim Creat Clear Calc Cancelled, Est GFR (MDRD) Af Amer Cancelled, Est GFR (MDRD) Non-Af Cancelled, BUN/Creatinine Ratio Cancelled, Glucose Cancelled, Calcium Cancelled, Total Bilirubin Cancelled, AST Cancelled, ALT Cancelled, Alkaline Phosphatase Cancelled, Total Protein Cancelled, Albumin Cancelled, Globulin Cancelled, Albumin/Globulin Ratio Cancelled, Triglycerides Cancelled, Cholesterol Cancelled, LDL Cholesterol Cancelled, VLDL Cholesterol Cancelled, HDL Cholesterol Cancelled 12/29/21 04:00: Sodium 135 L, Potassium 5.3 H, Chloride 109 H, Carbon Dioxide 25.0, Anion Gap 1 L, BUN 10, Creatinine 0.59, Estim Creat Clear Calc 111.77, Est GFR (MDRD) Af Amer 143, Est GFR (MDRD) Non-Af 118, BUN/Creatinine Ratio 16.9, Glucose 105, Calcium 8.7, Total Bilirubin 1.00, AST 24, ALT 16, Alkaline Phosphatase 92, Total Protein 7.3, Albumin 3.5, Globulin 3.8, Albumin/Globulin Ratio 0.9, Triglycerides 187, Cholesterol 168, LDL Cholesterol 108, VLDL Cholesterol 37, HDL Cholesterol 23 L Radiography Diagnostic Testing: Radiology Impression Brain CT 12/28/21 17:10 IMPRESSION: No acute intracranial abnormality. Electronically Signed: Donald Jimenez MD at 17:20 EDT , ADDENDUM: 12/28/21 1731 IMPRESSION: No acute intracranial abnormality. N.B. : The above Results were Read Back by Donald Jimenez MD to MURIEL MONREAL MD, and understanding confirmed on 12/28/2021 17:24:17 (ET). Electronically Signed: Donald Jimenez MD at 17:20 EDT , Head/Neck CTA 12/28/21 17:11 IMPRESSION: Normal CTA Head and neck with contrast. Electronically Signed: Cosme Odom DO at 17:39 EDT Reading Location ID and State: [facility] / [place] Tel [phone], Service support , ADDENDUM: 12/28/21 1746 IMPRESSION: Normal CTA Head and neck with contrast. N.B. : The above Results were Read Back by Cosme Odom DO to MURIEL MONREAL MD, and understanding confirmed on 12/28/2021 17:39:28 (ET). Electronically Signed: Cosme Odom DO at 17:39 EDT , Chest X-Ray 12/28/21 18:32 IMPRESSION: Patchy airspace opacities may represent edema and/or infection. Electronically Signed: Donald Jimenez MD at 20:13 EDT , Physical Exam Narrative GENERAL: cooperative HEENT: Atraumatic; normocephalic EYES; Anicteric, Normal Conjunctiva NECK; supple, normal thyroid, RESPIRATORY: Diminished to auscultation CARDIOVASCULAR: Regular S1 S2, GI: soft, normoactive bowel sounds, : No Renal angle tenderness; EXTREMITIES: No edema, no clubbing, MUSCULOSKELETAL: no muscle wasting NEURO: Awake; no lateralizing signs. SKIN: No Rash PSYCH; Flat affect Assessment & Plan Assessment/Plan (1) CVA (cerebral vascular accident): PLAN: Plan Patient is a 41-year-old F who presented with right-sided weakness and slurred speech. An assessment of CVA was made patient did receive tPA and subsequently admitted to the intensive care unit 1. Suspected CVA ? Patient presented with right-sided weakness right-sided facial droop. There was suspicion for acute CVA patient did receive tPA with resolution of his symptoms. Subsequently admitted to the intensive care unit. Patient to undergo further evaluation with a 2D echo MRI. Plan is for patient to be started on antiplatelet therapy 48 hours after tPA. Patient started on high-dose statin 3. Elevated blood pressure ? Patient had previously not been diagnosed with hypertension.Patient was started on labetalol having received tPA 3. Recent upper respiratory tract infection ? COVID obtained on admission came back negative 4. Class I obesity with BMI 33.1 ? Weight loss advised 5. Tobacco dependence - Counseled on cessation, offered nicotine patch for tobacco cravings 6. DVT prophylaxis -SCDs for now Charges/Coding Visit Charges Inpatient E&M: 77911 Subs Hosp L3
[2021-12-29] MEDS: guaiFENesin 600 MG Tablet PO (09:54)
--- NOTE | 2021-12-29 10:10 | CASEMGMT ---
RN CM GRADES 1 THROUGH 6 TEACHER CM to room to meet with patient for initial transition planning/care coordination assessment. RN MARY BETH introduced self and role at [facility]. Pt voices understanding and consents to assessment at this time. Pt resting in bed in no distress at this time. and pt's boss @ bedside. Pt agreeable to them both being present during assessment. Pt's boss offered to step out of the room, but pt insisted she stay in room. Pt is A/O at this time and answers all questions appropriately. Care providers, pharmacy, and demographics verified/updated at this time. PCP: No PCP. Pt provided w/list of local PCP's in [place] in-network w/pt's insurance. Pt voices appreciation. Specialists: None Preferred Pharmacy: [facility] [place] Insurance: [facility] Prescription Benefit: Yes Living Will/HPOA: Pt does not currently have LW/HCPOA and would like to complete them. CHELSIE, Jaqueline, made aware. LNOK: , Kaveh Living Arrangements: Lives w/. Independent. Works full-time Transportation: Pt states drives self and states no transportation concerns at this time. DME: Denies using any DME and denies needs. HHC/SNF: No hx of either. No needs identified. Pt wishes to return home and states has no concerns with going home at time of discharge. CM to follow for any discharge planning/needs. Pt voices no further concerns/needs at this time. Advised pt to ask for CM if any further questions/concerns/needs arise. Voices understanding. PLAN: Home w/spousal support and discharge plans in place. PT/OT evals pending. Casa HOOPER RN, CM
--- NOTE | 2021-12-29 12:45 | CT_ITS ---
STUDY: CT BRAIN WITHOUT CONTRAST REASON FOR EXAM: Female, 41 years old. R Side Weakness/Numbness RADIATION DOSAGE (If Supplied By Facility): CTDIvol = ( 47.06 ) mGy, DLP = ( 925.62 ) mGycm TECHNIQUE: Transaxial CT imaging of the brain was performed without administration of intravenous contrast material. Individualized dose optimization techniques were used for this CT. COMPARISON: Comparison is made with prior study dated 12/28/2021. FINDINGS: Normal soft tissue structures. Normal calvarium. Normal size ventricles and extra-axial spaces for the patient''s age. Normal white matter tracts of the cerebral hemispheres. Normal basal ganglia and thalami. Normal brainstem. Normal cerebellum. There is no intracranial hemorrhage. There are no findings of an acute ischemic infarction. Normal visualized paranasal sinuses. CT/Brain/Head without Contrast IMPRESSION: Normal unenhanced CT scan of the brain. Electronically Signed: Ariel Menendez MD at 13:03 EDT ,
--- NOTE | 2021-12-29 13:11 | CASEMGMT ---
SW completed a PHQ9 with patient as she may have had a Stroke. Patient scored a 1 which indicates minimal depression. Patient declined need for resources. SW was also informed patient would like to complete advance directives. SW confirmed patient would like to complete documents. However, patient wants to wait until her is present. SW left documents and SW's card. CHELSIE told patient she can call SW when she is ready to complete documents. Harriet Torres [employer]ER FLO
[2021-12-30] VITALS (24 sets, daily range): BP systolic 146–181; BP diastolic 80–103; PULSE 66–86; RESP 13–24; TEMP 36.1–37; O2SAT 93–98; BMI 32.9
[2021-12-30 03:40] LABS: Absolute Lymphocyte Count 2.17 X10^3/uL (0.83-4.51); Absolute Neutrophil Count 7.2 X10^3/uL (2.0-7.7); Basophil# 0.05 X10^3/uL; Basophil% 0.5 % (0-1); Hematocrit 39.8 % (37-47); Lymphocyte # 2.17 X10^3/ul (0.83-4.51); Lymphocyte % 21.1 % (19-41); Mean Corp Hgb Conc 32.7 g/dL (32-36); Mean Corpuscular Hgb 30.2 pg (27.0-32.0); Mean Corpuscular Volume 92.6 fL (81-99); Mean Platelet Vol. 10.2 fl (6.2-12.0); Monocyte# 0.71 X10^3/uL; Monocyte% 6.9 % (0-10); NRBC Flagged by Analyzer 0 % (0-5); Neutrophil # 7.21 X10^3/uL (2.7-7.7); Platelet Count 211 K/mm3 (150-450); RBC Distribution Width CV 13.9 % (11.6-14.6); RBC Distribution Width SD 47.4 fl (35.1-43.9); White Blood Count 10.3 K/mm3 (4.4-11.0)
[2021-12-30 03:58] LABS: Anion Gap 4 (5-15); BUN 8 mg/dL (7-18); BUN/Creat Ratio 14.2 RATIO (10-20); Calcium,Total 8.5 mg/dL (8.5-10.1); Chloride 111 mmol/L (98-107); Creatinine, Serum 0.56 mg/dL (0.55-1.02); EST Glomerular Filtration Rate 125 mL/min (>60); Est Glom Filt Rate - Afr Amer 151 mL/min (>60); Estimated Creatinine Clearance 117.76 ml/min; Glucose 92 mg/dL (74-106); Potassium 4.1 mmol/L (3.5-5.1); Sodium Level 138 mmol/L (136-145)
--- NOTE | 2021-12-30 06:44 | PN.CC_ITS ---
Assessment & Plan Assessment/Plan (1) CVA (cerebral vascular accident): PLAN: Plan RECOMMENDATIONS: 1. Obtain neurology follow-up today. 2. Obtain speech therapy evaluation and advance diet accordingly. 3. PT/OT evaluations. 4. Encourage incentive spirometer use and mobilize patient as tolerated. 5. The patient is medically stable for transfer out of the intensive care unit. 6. Given the patient's lack of ICU needs, will sign off. Please call with any additional questions. IMPRESSIONS: 1. Acute ischemic CVA status post tPA Brain MRI revealed findings consistent with ischemic infarction in the left pontine body. At this time, recommend evaluation by PT/OT/speech therapy. Diet can be advanced per recommendations. 2. Obesity/chronic tobacco dependency Complicates care, management, recovery and prognosis. Tobacco cessation counseling was provided. Continue nicotine replacement therapy while admitted to the hospital. This note was generated with [employer] dictation software. It may contain incorrect words, spelling, and punctuation that were not noted in checking the note before signing. Subjective Subjective The patient was seen and examined at the bedside this morning. Events from the last 24 hours have been reviewed. The patient is currently afebrile, hemodynamically stable and maintaining appropriate oxygen saturations on 2 L/min via nasal cannula. Brain MRI completed last night demonstrated acute ischemic infarction in the left pontine body. The patient is a bit tearful this morning, reporting the presence of a headache. She does still have residual right-sided weakness along with dysarthria and a right-sided facial droop. Objective Data Objective Data The patient's most recent lab work, culture data and imaging studies have all been personally reviewed. Surface echocardiogram demonstrated an ejection fra ction of 65% with a negative bubble study. Vital Signs: Vital Signs Temp Pulse Resp BP Pulse Ox O2 Del Method O2 Flow Rate 98.6 F 70 21 H 165/96 H 93 Nasal Cannula 2 12/30/21 00:00 12/30/21 06:00 12/30/21 06:00 12/30/21 06:00 12/30/21 06:00 12/30/21 06:00 12/30/21 06:00 FiO2 94 12/30/21 04:00 Oxygen Flow Rate (L/min) 2 Oxygen Delivery Method Nasal Cannula Weight: 199 lb 11.821 oz Body Mass Index (BMI) 32.9 Intake & Output: Intake and Output for Last 24 Hours 12/28/21 12/29/21 12/30/21 23:59 23:59 23:59 Intake Total 100 / 100 3026.67 / 3026.67 Output Total 600 / 700 1725 / 1725 450 / 450 Balance -500 / -600 1301.67 / 1301.67 -450 / -450 Lab / Micro Data Attestation: I reviewed the patient's lab results. Result Diagrams: 12/30/21 03:30 12/30/21 03:30 Labs: Laboratory Results - last 24 hr 12/30/21 03:30: WBC 10.3, RBC 4.30, Hgb 13.0, Hct 39.8, MCV 92.6, MCH 30.2, MCHC 32.7, RDW Std Deviation 47.4 H, RDW Coeff of Stacy 13.9, Plt Count 211, MPV 10.2, Immature Gran % (Auto) 0.500, Neut % (Auto) 70.0, Lymph % (Auto) 21.1, [place] % (Auto) 6.9, Eos % (Auto) 1.0, Baso % (Auto) 0.5, Absolute Neuts (auto) 7.2, Absolute Lymphs (auto) 2.17, Nucleated RBC % 0 12/30/21 03:30: Sodium 138, Potassium 4.1, Chloride 111 H, Carbon Dioxide 23.0, Anion Gap 4 L, BUN 8, Creatinine 0.56, Estim Creat Clear Calc 117.76, Est GFR (MDRD) Af Amer 151, Est GFR (MDRD) Non-Af 125, BUN/Creatinine Ratio 14.2, Glucose 92, Calcium 8.5 Radiography Diagnostic Testing: Radiology Impression Brain MRI 12/28/21 19:08 IMPRESSION: 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 Minor periventricular white matter ischemic change without evidence for acute infarct N.B. : The above Results were Read Back by Brayden Pitts MD to Krystal Gonzalez MD, and understanding confirmed on 12/29/2021 20:25:32 (ET). Electronically Signed: Brayden Pitts MD at 19:56 EDT , Echocardiogram 12/28/21 19:08 Interpretation Summary Moderate concentric left ventricular hypertrophy. The left ventricular ejection fraction is 65 %. Diastolic function is indeterminate. Lipomatous hypertrophy of the atrial septum. Bubble contrast study negative for right to left interatrial shunt. Ordering Physician: Brii Pryor Referring Physician: STACEY PCP Performed By: Selena Rock RCS Brain CT 12/29/21 12:45 IMPRESSION: Normal unenhanced CT scan of the brain. Electronically Signed: Ariel Menendez MD at 13:03 EDT , Physical Exam Const alert Constitutional Narrative: Tearful during my interaction with her. General Appearance: cooperative Nutritional Appearance: obese HEENT normocephalic, head/scalp atraumatic and moist oral mucous membranes Eyes PERRL, EOMs intact bilaterally and conjunctivae normal Neck supple General: trachea midline Chest inspection of chest normal Resp normal respiratory effort Auscultation: Negative for rales, rhonchi or wheezes Cardio regular rate and regular rhythm GI normal to inspection, nondistended, normoactive bowel sounds Extremity no clubbing, cyanosis or edema Skin no rashes or lesions noted Neuro oriented x3 Neuro Narrative: Residual right upper extremity weakness with mild dysarthria and right facial droop. Psych cooperative Charges/Coding Visit Charges Inpatient E&M: 33764 Subs Hosp L2
--- NOTE | 2021-12-30 07:12 | PCM.PN.HOSP ---
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 Minor periventricular white matter ischemic change without evidence for acute infarct Objective Data Objective Data Vital Signs: Vital Signs Temp Pulse Resp BP Pulse Ox O2 Del Method O2 Flow Rate 98.6 F 70 21 H 165/96 H 93 Nasal Cannula 2 12/30/21 00:00 12/30/21 06:00 12/30/21 06:00 12/30/21 06:00 12/30/21 06:00 12/30/21 06:00 12/30/21 06:00 FiO2 94 12/30/21 04:00 Oxygen Flow Rate (L/min) 2 Oxygen Delivery Method Nasal Cannula Weight: 90.6 kg Body Mass Index (BMI) 32.9 Intake & Output: Intake and Output for Last 24 Hours 12/28/21 12/29/21 12/30/21 23:59 23:59 23:59 Intake Total 100 / 100 3026.67 / 3026.67 Output Total 600 / 700 1725 / 1725 450 / 450 Balance -500 / -600 1301.67 / 1301.67 -450 / -450 Lab / Micro Data Result Diagrams: 12/30/21 03:30 12/30/21 03:30 Labs: Laboratory Results - last 24 hr 12/30/21 03:30: WBC 10.3, RBC 4.30, Hgb 13.0, Hct 39.8, MCV 92.6, MCH 30.2, MCHC 32.7, RDW Std Deviation 47.4 H, RDW Coeff of Stacy 13.9, Plt Count 211, MPV 10.2, Immature Gran % (Auto) 0.500, Neut % (Auto) 70.0, Lymph % (Auto) 21.1, [place] % (Auto) 6.9, Eos % (Auto) 1.0, Baso % (Auto) 0.5, Absolute Neuts (auto) 7.2, Absolute Lymphs (auto) 2.17, Nucleated RBC % 0 12/30/21 03:30: Sodium 138, Potassium 4.1, Chloride 111 H, Carbon Dioxide 23.0, Anion Gap 4 L, BUN 8, Creatinine 0.56, Estim Creat Clear Calc 117.76, Est GFR (MDRD) Af Amer 151, Est GFR (MDRD) Non-Af 125, BUN/Creatinine Ratio 14.2, Glucose 92, Calcium 8.5 Radiography Diagnostic Testing: Radiology Impression Brain MRI 12/28/21 19:08 IMPRESSION: 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 Minor periventricular white matter ischemic change without evidence for acute infarct N.B. : The above Results were Read Back by Brayden Pitts MD to Krystal Gonzalez MD, and understanding confirmed on 12/29/2021 20:25:32 (ET). Electronically Signed: Brayden Pitts MD at 19:56 EDT , Echocardiogram 12/28/21 19:08 Interpretation Summary Moderate concentric left ventricular hypertrophy. The left ventricular ejection fraction is 65 %. Diastolic function is indeterminate. Lipomatous hypertrophy of the atrial septum. Bubble contrast study negative for right to left interatrial shunt. Ordering Physician: Brii Pryor Referring Physician: STACEY PCP Performed By: Selena Rock RCS Brain CT 12/29/21 12:45 IMPRESSION: Normal unenhanced CT scan of the brain. Electronically Signed: Ariel Menendez MD at 13:03 EDT , Physical Exam Narrative GENERAL: cooperative HEENT: Atraumatic; normocephalic EYES; Anicteric, Normal Conjunctiva NECK; supple, normal thyroid, RESPIRATORY: Diminished to auscultation CARDIOVASCULAR: Regular S1 S2, GI: soft, normoactive bowel sounds, : No Renal angle tenderness; EXTREMITIES: No edema, no clubbing, MUSCULOSKELETAL: no muscle wasting NEURO: Awake; no lateralizing signs. SKIN: No Rash PSYCH; Flat affect Assessment & Plan Assessment/Plan (1) CVA (cerebral vascular accident): PLAN: Plan Patient is a 41-year-old F who presented with right-sided weakness and slurred speech. An assessment of CVA was made patient did receive tPA and subsequently admitted to the intensive care unit 1. Suspected CVA ? Patient presented with right-sided weakness right-sided facial droop. There was suspicion for acute CVA patient did receive tPA with resolution of his symptoms. Subsequently admitted to the intensive care unit. Patient to undergo further evaluation with a 2D echo MRI. Plan is for patient to be started on antiplatelet therapy 48 hours after tPA. 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 Minor periventricular white matter ischemic change without evidence for acute infarct 3. Elevated blood pressure ? Patient had previously not been diagnosed with hypertension.Patient was started on labetalol having received tPA ? 12/30/2021; patient started on amlodipine 3. Recent upper respiratory tract infection ? COVID obtained on admission came back negative 4. Class I obesity with BMI 33.1 ? Weight loss advised 5. Tobacco dependence - Counseled on cessation, offered nicotine patch for tobacco cravings 6. DVT prophylaxis -SCDs for now Charges/Coding Visit Charges Inpatient E&M: 45650 Subs Hosp L2
[2021-12-30] MEDS: Sodium Chloride 0.65% 1 SPRAY SPRAY.BTL NASAL (10:20)
[2021-12-30] MEDS: hydrALAZINE 20 MG/ML Vial 10 MG IV (10:33)
[2021-12-30] MEDS: 0.9% Normal Saline 1,000 ML 100 ML IV ×2 (10:33→20:33)
[2021-12-30] MEDS: amLODIPine 10 MG Tablet PO (11:25)
[2021-12-30] MEDS: guaiFENesin 600 MG Tablet PO ×2 (11:25→21:17)
[2021-12-30] MEDS: Ondansetron 4 MG/2 ML Vial IV (11:34)
[2021-12-30] MEDS: hydrALAZINE 25 MG Tablet PO ×2 (14:34→21:17)
[2021-12-30] MEDS: Metoprolol Tartrate 25 MG Tablet PO ×2 (14:34→21:18)
[2021-12-30] MEDS: hydroCHLOROthiazide 25 MG Tablet PO (14:34)
--- NOTE | 2021-12-30 15:45 | CASEMGMT ---
SW reviewed therapy notes and therapy is recommending rehab for patient. SW obtained a copy of patient's insurance card. SW spoke with patient and she is agreeable to going to a Rehab Unit in [place]. SW provided her with a list of Acute Rehab providers including quality and resource use data and consistent with the patient?s preferred geographic region, medical needs, and insurance network were provided from the [employer]. SW explained to patient that she would just need to let us know which facility she would like and SW will take care of sending referrals. SW also let patient know that she will be here through the weekend as insurance will have to approve her so SW can assist in completing her Advance Directives on Sunday. Patient was agreeable to this. Plan: Acute Rehab pending patient's choice and insurance authorization. Harriet ROSSI
[2021-12-30] MEDS: Aspirin 81 MG TAB.CHEW PO (15:59)
--- NOTE | 2021-12-30 16:00 | CASEMGMT ---
CHARLIE CLINTON NOTE: CHARLIE CLINTON to room. Pt and have reviewed RU lists in [place]. 1st choice is [facility]. 2nd choice: [facility]. 3rd choice: [facility]. Call placed to Adilene @ [facility]. She states they do have 3 beds available. She states she is leaving for the day, so referral will not be reviewed until Sunday. CHARLIE CLINTON informed her referral will be sent via [facility]. [facility] also asks for referral to also be faxed to them @ [phone] and make it attention to Jocelynn. Referral sent to [facility] via [facility] at this time and referral also faxed as requested. Casa HOOPER RN, CM
--- NOTE | 2021-12-30 19:00 | MRI_ITS ---
We are attempting to reach an attending provider to discuss findings. An addendum with communication details will be sent when the communication is complete. EXAM: MR HEAD WITHOUT INTRAVENOUS CONTRAST CLINICAL INDICATION: cva TECHNIQUE: Multiplanar and multisequence MR images of the brain were obtained without intravenous contrast. This report was created using [employer] report generation technology. COMPARISON: CT head 12/29/2021. FINDINGS: BRAIN AND EXTRA-AXIAL SPACES: No intracranial mass, mass effect or midline shift. No hemorrhage or territorial infarct. Normal white matter. Ventricles are normal in size. Restricted diffusion in the left paramedian sarah consistent with acute ischemia. Pituitary gland is normal in height. AUDITORY SYSTEM: Unremarkable. BONES/JOINTS: Unremarkable. No discrete lytic or blastic abnormalities. SINUSES: Unremarkable as visualized. Clear. MASTOID AIR CELLS: Unremarkable as visualized. Clear. ORBITS: Unremarkable as visualized. Both globes, extraocular muscles, optic nerves and retrobulbar fat appear unremarkable. VASCULATURE: Unremarkable as visualized. Normal flow voids in the major intracranial circulation. MRI/Brain without Contrast IMPRESSION: Acute infarct in the left sarah. Electronically Signed: Marj Chaney MD at 20:56 EDT Reading Location ID and State: [id number] / Tel , Service support ,
--- NOTE | 2021-12-30 21:04 | PCM.HOSP.N ---
Hospitalist Note Called by radiologist with regards to the repeat MRI. No significant changes noted in previous pontine stroke on the right. She does state that the area may be a bit more circumscribed and slightly enlarged compared to previous but overall fairly stable on comparison.
[2021-12-31] VITALS (18 sets, daily range): BP systolic 144–181; BP diastolic 92–116; PULSE 69–91; RESP 16–26; TEMP 36.3–36.7; O2SAT 94–98; BMI 32.9
[2021-12-31] MEDS: 0.9% Normal Saline 1,000 ML 100 ML IV (06:35)
[2021-12-31] MEDS: Aspirin 81 MG TAB.CHEW PO (08:40)
[2021-12-31] MEDS: hydrALAZINE 25 MG Tablet PO ×4 (08:41→21:22)
[2021-12-31] MEDS: guaiFENesin 600 MG Tablet PO ×2 (08:42→21:22)
[2021-12-31] MEDS: hydroCHLOROthiazide 25 MG Tablet PO (08:42)
[2021-12-31] MEDS: Metoprolol Tartrate 25 MG Tablet PO ×2 (08:42→21:22)
[2021-12-31] MEDS: amLODIPine 10 MG Tablet PO (08:43)
--- NOTE | 2021-12-31 10:31 | PN.HOSP_ITS ---
Subjective Subjective Patient seen and examined. was by her bedside. She still has some expressive aphasia, and complained of weakness in her RUE. Weakness in her RLE has improved. She denied any palpitations, dizziness, nausea, vomiting or diarrhea. Review of systems is otherwise negative. Objective Data Objective Data Vital Signs: Vital Signs Temp Pulse Resp BP Pulse Ox O2 Del Method O2 Flow Rate 98.0 F 76 16 181/116 H 97 Nasal Cannula 21 12/31/21 04:00 12/31/21 08:42 12/31/21 04:00 12/31/21 08:42 12/31/21 04:00 12/31/21 04:00 12/31/21 04:00 FiO2 94 12/30/21 04:00 Oxygen Flow Rate (L/min) 21 Oxygen Delivery Method Nasal Cannula Weight: 201 lb 4.513 oz Body Mass Index (BMI) 32.9 Intake & Output: Intake and Output for Last 24 Hours 12/29/21 12/30/21 12/31/21 23:59 23:59 23:59 Intake Total 3026.67 / 3026.67 2240 / 2240 1216.67 / 1216.67 Output Total 1725 / 1725 3500 / 3500 600 / 600 Balance 1301.67 / 1301.67 -1260 / -1260 616.67 / 616.67 Lab / Micro Data Result Diagrams: 12/30/21 03:30 12/30/21 03:30 Radiography Diagnostic Testing: Radiology Impression Brain MRI 12/30/21 19:00 IMPRESSION: Acute infarct in the left sarah. Electronically Signed: Marj Chaney MD at 20:56 EDT Reading Location ID and State: [id number] / Tel , Service support , ADDENDUM: 12/30/212114 IMPRESSION: undefined ADDENDUM: 12/30/212117 IMPRESSION: undefined Physical Exam Const alert, oriented x3 and no apparent distress HEENT head/scalp atraumatic, moist oral mucous membranes and oropharynx normal Head and Scalp: normocephalic Mouth: oral and palatal mucosa normal Eyes PERRL, EOMs intact bilaterally and conjunctivae normal Neck no lymphadenopathy and supple Resp normal respiratory effort, no retractions, no use of accessory muscles and clear to auscultation bilaterally Cardio regular rate, regular rhythm, S1 normal heart sound, S2 normal heart sound and no murmurs GI normal to inspection, nondistended, normoactive bowel sounds, soft to palpation, non-tender and non-distended Extremity normal to inspection Neuro oriented x3 Neuro Narrative: has right facial palsy, power in RUE is 1/5, has associated numbness of RUE. has expressive aphasia Sensorium / Orientation: awake Psych affect normal Assessment & Plan Assessment/Plan (1) CVA (cerebral vascular accident): PLAN: Plan #Acute CVA * MRI showed CVA of the left pontine body * received tPA * on high intensity statin * repeat MRI after tPA showed no significant change in previous pontine stroke on the right with with the area being perhaps a bit more circumscribed and slightly enlarged compared to previous but overall fairly stable in comparison. * will start on PO aspirin * continue high intensity statin * 2D echo: moderate concentric LVH and EF of 65%, with indeterminate diastolic function and lipomatous hypertrophy of hte atrial septum. Bubble study negative * PT/OT on board. Fall precautions * per neurology to consider CHANDANA due to relatively young status. * # Elevated blood pressure * Blood pressure still remains markedly elevated. She does not have a known diagnosis of hypertension. * On amlodipine and metoprolol as well as hydralazine * thinks her anxiety is contributing to it. * IV hydralazine as needed * monitor BP and adjust as needed * #Nicotine dependence: Counseled to quit especially in light of stroke. Nicotine patch DVT prophylaxis; SCDs Charges/Coding Visit Charges Inpatient E&M: 64065 Subs Hosp L2
[2021-12-31] MEDS: Nystatin Powder 15gm Bottle 1 APPLIC TOPICAL ×2 (14:06→21:22)
[2022-01-01] VITALS (12 sets, daily range): BP systolic 134–159; BP diastolic 70–104; PULSE 65–106; RESP 14–22; TEMP 36.6–36.8; O2SAT 94–100; BMI 32.9
[2022-01-01 03:54] LABS: Absolute Lymphocyte Count 2.52 X10^3/uL (0.83-4.51); Absolute Neutrophil Count 7.5 X10^3/uL (2.0-7.7); Basophil# 0.05 X10^3/uL; Basophil% 0.4 % (0-1); Eosinophils% 1.8 % (0-5); Hematocrit 42.3 % (37-47); Hemoglobin 14.1 g/dL (12.0-15.0); Lymphocyte # 2.52 X10^3/ul (0.83-4.51); Lymphocyte % 22.6 % (19-41); Mean Corp Hgb Conc 33.3 g/dL (32-36); Mean Corpuscular Hgb 29.3 pg (27.0-32.0); Mean Corpuscular Volume 87.8 fL (81-99); Mean Platelet Vol. 10.2 fl (6.2-12.0); Monocyte# 0.84 X10^3/uL; Monocyte% 7.5 % (0-10); NRBC Flagged by Analyzer 0 % (0-5); Neutrophil # 7.47 X10^3/uL (2.7-7.7); Neutrophil % 67.3 % (47-70); Platelet Count 299 K/mm3 (150-450); RBC Distribution Width CV 13.4 % (11.6-14.6); RBC Distribution Width SD 43.1 fl (35.1-43.9); Red Blood Count 4.82 M/mm3 (4.2-5.4); White Blood Count 11.1 K/mm3 (4.4-11.0)
[2022-01-01 04:04] LABS: Anion Gap 6 (5-15); BUN 15 mg/dL (7-18); BUN/Creat Ratio 22.6 RATIO (10-20); Calcium,Total 9.3 mg/dL (8.5-10.1); Chloride 107 mmol/L (98-107); Creatinine, Serum 0.66 mg/dL (0.55-1.02); EST Glomerular Filtration Rate 103 mL/min (>60); Est Glom Filt Rate - Afr Amer 125 mL/min (>60); Estimated Creatinine Clearance 99.92 ml/min; Glucose 96 mg/dL (74-106); Potassium 3.1 mmol/L (3.5-5.1); Sodium Level 137 mmol/L (136-145)
--- NOTE | 2022-01-01 06:28 | NURSING ---
Report called to Bhavna GUERRA on PCU.
[2022-01-01] MEDS: hydroCHLOROthiazide 25 MG Tablet PO (10:10)
[2022-01-01] MEDS: guaiFENesin 600 MG Tablet PO ×2 (10:10→22:23)
[2022-01-01] MEDS: Aspirin 81 MG TAB.CHEW PO (10:10)
[2022-01-01] MEDS: hydrALAZINE 25 MG Tablet PO ×4 (10:10→22:23)
[2022-01-01] MEDS: Metoprolol Tartrate 25 MG Tablet PO ×2 (10:10→22:23)
[2022-01-01] MEDS: amLODIPine 10 MG Tablet PO (10:11)
[2022-01-01] MEDS: Potassium Chloride Oral Tablet 20 MEQ 40 MEQ PO (10:12)
--- NOTE | 2022-01-01 11:26 | PN.HOSP_ITS ---
Subjective Subjective Patient seen and examined. She felt much better today and says she could move her right upper extremity much better. Her right-sided facial droop is also improved. Review of systems otherwise negative. Objective Data Objective Data Vital Signs: Vital Signs Temp Pulse Resp BP Pulse Ox O2 Del Method O2 Flow Rate 98.0 F 65 16 159/104 H 94 Room Air 2 01/01/22 06:52 01/01/22 10:10 01/01/22 06:52 01/01/22 06:52 01/01/22 06:52 01/01/22 06:52 12/31/21 08:00 FiO2 94 12/30/21 04:00 Oxygen Flow Rate (L/min) 2 Oxygen Delivery Method Room Air Weight: 195 lb 1.6 oz Body Mass Index (BMI) 32.9 Intake & Output: Intake and Output for Last 24 Hours 12/30/21 12/31/21 01/01/22 23:59 23:59 22:59 Intake Total 2240 / 2240 1466.67 / 1566.67 100 / 100 Output Total 3500 / 3500 750 / 750 Balance -1260 / -1260 716.67 / 816.67 100 / 100 Lab / Micro Data Result Diagrams: 01/01/22 03:44 01/01/22 03:44 Labs: Laboratory Results - last 24 hr 01/01/22 03:44: WBC 11.1 H, RBC 4.82, Hgb 14.1, Hct 42.3, MCV 87.8 D, MCH 29.3, MCHC 33.3, RDW Std Deviation 43.1, RDW Coeff of Stacy 13.4, Plt Count 299, MPV 10.2, Immature Gran % (Auto) 0.400, Neut % (Auto) 67.3, Lymph % (Auto) 22.6, [place] % (Auto) 7.5, Eos % (Auto) 1.8, Baso % (Auto) 0.4, Absolute Neuts (auto) 7.5, Absolute Lymphs (auto) 2.52, Nucleated RBC % 0 01/01/22 03:44: Sodium 137, Potassium 3.1 L, Chloride 107, Carbon Dioxide 24.0, Anion Gap 6, BUN 15, Creatinine 0.66, Estim Creat Clear Calc 99.92, Est GFR (MDRD) Af Amer 125, Est GFR (MDRD) Non-Af 103, BUN/Creatinine Ratio 22.6 H, Glucose 96, Calcium 9.3 Physical Exam Const alert, oriented x3 and no apparent distress HEENT head/scalp atraumatic, moist oral mucous membranes and oropharynx normal Head and Scalp: normocephalic Mouth: oral and palatal mucosa normal Eyes PERRL, EOMs intact bilaterally and conjunctivae normal Neck no lymphadenopathy and supple Resp normal respiratory effort, no retractions, no use of accessory muscles and clear to auscultation bilaterally Cardio regular rate, regular rhythm, S1 normal heart sound, S2 normal heart sound and no murmurs GI normal to inspection, nondistended, normoactive bowel sounds, soft to palpation, non-tender and non-distended Extremity normal to inspection Neuro oriented x3 Neuro Narrative: Expressive aphasia has improved markedly. Right facial droop is also markedly improved. Power in right upper extremity is now 4/5. Sensorium / Orientation: awake Psych affect normal Assessment & Plan Assessment/Plan (1) CVA (cerebral vascular accident): PLAN: Plan #Acute CVA * MRI showed CVA of the left pontine body * received tPA * on high intensity statin * repeat MRI after tPA showed no significant change in previous pontine stroke on the right with with the area being perhaps a bit more circumscribed and slightly enlarged compared to previous but overall fairly stable in comparison. * on PO aspirin 81mg daily * continue high intensity statin * 2D echo: moderate concentric LVH and EF of 65%, with indeterminate diastolic function and lipomatous hypertrophy of hte atrial septum. Bubble study nega tive * PT/OT on board. Fall precautions * per neurology to consider CHANDANA due to relatively young status. * # Hypertension * newly diagnosed * On amlodipine and metoprolol as well as hydralazine * thinks her anxiety is contributing to it. * IV hydralazine as needed * monitor BP and adjust as needed * #Nicotine dependence: Counseled to quit especially in light of stroke. Nicotine patch DVT prophylaxis; SCDs Charges/Coding Visit Charges Inpatient E&M: 70836 Subs Hosp L2
[2022-01-01] MEDS: Nystatin Powder 15gm Bottle 1 APPLIC TOPICAL ×2 (14:33→22:24)
[2022-01-01] MEDS: Acetaminophen 325 MG Tablet 650 MG PO (22:23)
[2022-01-02] VITALS (24 sets, daily range): BP systolic 110–154; BP diastolic 69–98; PULSE 65–89; RESP 16–30; TEMP 36.2–36.9; O2SAT 90–99; BMI 32.9
[2022-01-02] MEDS: Nystatin Powder 15gm Bottle 1 APPLIC TOPICAL ×3 (06:27→21:31)
[2022-01-02 07:02] LABS: Absolute Lymphocyte Count 2.05 X10^3/uL (0.83-4.51); Absolute Neutrophil Count 8.5 X10^3/uL (2.0-7.7); Basophil# 0.07 X10^3/uL; Basophil% 0.6 % (0-1); Eosinophil# 0.17 X10^3/uL; Eosinophils% 1.5 % (0-5); Hematocrit 43.8 % (37-47); Lymphocyte # 2.05 X10^3/ul (0.83-4.51); Lymphocyte % 17.6 % (19-41); Mean Corp Hgb Conc 34.2 g/dL (32-36); Mean Corpuscular Hgb 29.9 pg (27.0-32.0); Mean Corpuscular Volume 87.3 fL (81-99); Mean Platelet Vol. 10.6 fl (6.2-12.0); Monocyte% 6.9 % (0-10); NRBC Flagged by Analyzer 0 % (0-5); Neutrophil # 8.48 X10^3/uL (2.7-7.7); Platelet Count 315 K/mm3 (150-450); RBC Distribution Width CV 13.6 % (11.6-14.6); RBC Distribution Width SD 43.6 fl (35.1-43.9); Red Blood Count 5.02 M/mm3 (4.2-5.4); White Blood Count 11.6 K/mm3 (4.4-11.0)
[2022-01-02 07:32] LABS: Anion Gap 8 (5-15); BUN 20 mg/dL (7-18); BUN/Creat Ratio 30.4 RATIO (10-20); Calcium,Total 9.7 mg/dL (8.5-10.1); Chloride 107 mmol/L (98-107); Creatinine, Serum 0.66 mg/dL (0.55-1.02); EST Glomerular Filtration Rate 105 mL/min (>60); Est Glom Filt Rate - Afr Amer 126 mL/min (>60); Estimated Creatinine Clearance 99.92 ml/min; Glucose 104 mg/dL (74-106); Potassium 3.5 mmol/L (3.5-5.1); Sodium Level 138 mmol/L (136-145)
--- NOTE | 2022-01-02 09:40 | CASEMGMT ---
SW sent updated information to [facility] via [employer]. SW will also fax this information. CHELSIE will follow up with a phone call. Plan: Acute Rehab pending acceptance and insurance approval. Harriet ROSSI
--- NOTE | 2022-01-02 10:29 | CASEMGMT ---
CHELSIE called [facility] and spoke with Adilene. SW asked about referral. Adilene said she could not see anything in [facility], but she did get the fax. SW let her know patient is ready for discharge so if she could let SW know soon. Plan: Acute Rehab pending accepting facility and pre-cert. Harriet Torres [employer] FLO
--- NOTE | 2022-01-02 11:25 | CASEMGMT ---
SW completed Healthcare Power of [employer] with patient per her request. Copies were made and given to patient along with original. SW also placed a copy in patient's chart. Harriet ROSSI
[2022-01-02] MEDS: Metoprolol Tartrate 25 MG Tablet PO ×2 (11:35→21:31)
[2022-01-02] MEDS: hydroCHLOROthiazide 25 MG Tablet PO ×2 (11:35→21:31)
[2022-01-02] MEDS: Aspirin 81 MG TAB.CHEW PO (11:36)
[2022-01-02] MEDS: guaiFENesin 600 MG Tablet PO ×2 (11:36→21:31)
[2022-01-02] MEDS: amLODIPine 10 MG Tablet PO (11:36)
--- NOTE | 2022-01-02 12:22 | PN.HOSP_ITS ---
Subjective Subjective Patient seen and examined. She doesnt have any complaints today. The strength in her RUE has improved some more. Review of systems is otherwise negative. Objective Data Objective Data Vital Signs: Vital Signs Temp Pulse Resp BP Pulse Ox O2 Del Method O2 Flow Rate 97.4 F L 80 24 H 147/95 H 99 Nasal Cannula 2 01/02/22 09:02 01/02/22 11:43 01/02/22 11:43 01/02/22 11:43 01/02/22 11:43 01/02/22 11:43 01/02/22 11:43 FiO2 94 12/30/21 04:00 Oxygen Flow Rate (L/min) 2 Oxygen Delivery Method Nasal Cannula Weight: 197 lb 5.019 oz Body Mass Index (BMI) 32.9 Intake & Output: Intake and Output for Last 24 Hours 01/01/22 01/01/22 01/02/22 00:59 23:59 23:59 Intake Total Output Total Balance Lab / Micro Data Result Diagrams: 01/02/22 05:51 01/02/22 05:51 Labs: Laboratory Results - last 24 hr 01/02/22 05:51: WBC 11.6 H, RBC 5.02, Hgb 15.0, Hct 43.8, MCV 87.3, MCH 29.9, MCHC 34.2, RDW Std Deviation 43.6, RDW Coeff of Stacy 13.6, Plt Count 315, MPV 10.6, Immature Gran % (Auto) 0.400, Neut % (Auto) 73.0 H, Lymph % (Auto) 17.6 L, [place] % (Auto) 6.9, Eos % (Auto) 1.5, Baso % (Auto) 0.6, Absolute Neuts (auto) 8.5 H, Absolute Lymphs (auto) 2.05, Nucleated RBC % 0 01/02/22 05:51: Sodium 138, Potassium 3.5, Chloride 107, Carbon Dioxide 23.0, Anion Gap 8, BUN 20 H, Creatinine 0.66, Estim Creat Clear Calc 99.92, Est GFR (MDRD) Af Amer 126, Est GFR (MDRD) Non-Af 105, BUN/Creatinine Ratio 30.4 H, Glucose 104, Calcium 9.7 Physical Exam Const alert, oriented x3 and no apparent distress HEENT head/scalp atraumatic, moist oral mucous membranes and oropharynx normal Head and Scalp: normocephalic Mouth: oral and palatal mucosa normal Eyes PERRL, EOMs intact bilaterally and conjunctivae normal Neck no lymphadenopathy, supple and no JVD Resp normal respiratory effort, no retractions, no use of accessory muscles and clear to auscultation bilaterally Cardio regular rate, regular rhythm, S1 normal heart sound, S2 normal heart sound and no murmurs GI normal to inspection, nondistended, normoactive bowel sounds, soft to palpation, non-tender and non-distended Extremity normal to inspection and full ROM Neuro oriented x3 Neuro Narrative: Expressive aphasia has largely resolved, as well as right facial droop and power in RUE is still 4/5. Sensorium / Orientation: awake and alert Psych affect normal Assessment & Plan Assessment/Plan (1) CVA (cerebral vascular accident): PLAN: Plan #Acute CVA * MRI showed CVA of the left pontine body * received tPA * on high intensity statin * repeat MRI after tPA showed no significant change in previous pontine stroke on the right with with the area being perhaps a bit more circumscribed and slightly enlarged compared to previous but overall fairly stable in comparis on. * on PO aspirin 81mg daily * continue high intensity statin * 2D echo: moderate concentric LVH and EF of 65%, with indeterminate diastolic function and lipomatous hypertrophy of hte atrial septum. Bubble study negative * PT/OT on board. Fall precautions * had CHANDANA today which showed no evidence of afib * # Hypertension * newly diagnosed * On amlodipine and metoprolol as well as hydralazine * thinks her anxiety is contributing to it. * IV hydralazine as needed * monitor BP and adjust as needed * #Nicotine dependence: Counseled to quit especially in light of stroke. Nicotine patch DVT prophylaxis; SCDs Disposition: awaiting placement Charges/Coding Visit Charges Inpatient E&M: 91535 Subs Hosp L2
[2022-01-02] MEDS: Acetaminophen 325 MG Tablet 650 MG PO ×2 (13:47→18:01)
[2022-01-02] MEDS: hydrALAZINE 25 MG Tablet PO ×3 (13:48→21:57)
--- NOTE | 2022-01-02 15:05 | CASEMGMT ---
CHELSIE received a call from Adilene at [facility]. They are interested, but she has to speak with a family member that will be able to be with patient 24/ after her discharge from rehab. She has not been able to reach patient's and his voice mailbox is full. CHELSIE suggested she speak with patient as she is alert and oriented. Adilene said she would also have to talk with the family member. CHELSIE gave her the phone number to patient's room. Harriet ROSSI
--- NOTE | 2022-01-02 16:25 | CASEMGMT ---
CHELSIE spoke with Adilene at [facility] and she was able to talk with patient and a family member. She needs PT/OT from today and a progress note from today. She will start pre-cert. SW sent PT,ST, and progress note to [facility] via [employer]. OT was not able to see patient today. Harriet Torres [employer] FLO
[2022-01-02] MEDS: Atorvastatin Calcium 40 MG Tablet PO (17:09)
[2022-01-03] VITALS (18 sets, daily range): BP systolic 121–144; BP diastolic 71–91; PULSE 70–89; RESP 16–18; TEMP 36.4–37.1; O2SAT 93–98; BMI 32.9
[2022-01-03 07:24] LABS: Absolute Lymphocyte Count 2.26 X10^3/uL (0.83-4.51); Absolute Neutrophil Count 8.2 X10^3/uL (2.0-7.7); Basophil# 0.07 X10^3/uL; Basophil% 0.6 % (0-1); Eosinophil# 0.24 X10^3/uL; Hematocrit 46.2 % (37-47); Hemoglobin 15.4 g/dL (12.0-15.0); Lymphocyte # 2.26 X10^3/ul (0.83-4.51); Lymphocyte % 19.1 % (19-41); Mean Corp Hgb Conc 33.3 g/dL (32-36); Mean Corpuscular Hgb 29.3 pg (27.0-32.0); Mean Platelet Vol. 10.7 fl (6.2-12.0); Monocyte# 0.99 X10^3/uL; Monocyte% 8.4 % (0-10); NRBC Flagged by Analyzer 0 % (0-5); Neutrophil # 8.21 X10^3/uL (2.7-7.7); Neutrophil % 69.3 % (47-70); Platelet Count 345 K/mm3 (150-450); RBC Distribution Width CV 13.3 % (11.6-14.6); RBC Distribution Width SD 43.3 fl (35.1-43.9); Red Blood Count 5.25 M/mm3 (4.2-5.4); White Blood Count 11.8 K/mm3 (4.4-11.0)
[2022-01-03 07:52] LABS: Anion Gap 5 (5-15); BUN 25 mg/dL (7-18); BUN/Creat Ratio 33.5 RATIO (10-20); Calcium,Total 10.1 mg/dL (8.5-10.1); Chloride 104 mmol/L (98-107); Creatinine, Serum 0.75 mg/dL (0.55-1.02); EST Glomerular Filtration Rate 90 mL/min (>60); Est Glom Filt Rate - Afr Amer 109 mL/min (>60); Estimated Creatinine Clearance 87.93 ml/min; Glucose 106 mg/dL (74-106); Potassium 3.6 mmol/L (3.5-5.1); Sodium Level 135 mmol/L (136-145)
[2022-01-03] MEDS: amLODIPine 10 MG Tablet PO (09:39)
[2022-01-03] MEDS: guaiFENesin 600 MG Tablet PO ×2 (09:39→22:13)
[2022-01-03] MEDS: hydrALAZINE 25 MG Tablet PO ×4 (09:39→22:13)
[2022-01-03] MEDS: Aspirin 81 MG TAB.CHEW PO (09:39)
[2022-01-03] MEDS: Metoprolol Tartrate 25 MG Tablet PO ×2 (09:39→22:13)
[2022-01-03] MEDS: Acetaminophen 325 MG Tablet 650 MG PO ×3 (09:39→20:38)
--- NOTE | 2022-01-03 10:11 | PN.HOSP_ITS ---
Subjective Subjective Patient seen and examined. She continues to feel better and says the function in her LUE has continued to improve. She has no other complaints and review of systems is otherwise negative. She has remained hemodynamically stable. Objective Data Objective Data Vital Signs: Vital Signs Temp Pulse Resp BP Pulse Ox O2 Del Method O2 Flow Rate 98.2 F 89 18 144/91 H 98 Room Air 2 01/03/22 09:34 01/03/22 09:39 01/03/22 09:34 01/03/22 09:39 01/03/22 09:34 01/03/22 09:34 01/02/22 11:43 FiO2 94 12/30/21 04:00 Oxygen Flow Rate (L/min) 2 Oxygen Delivery Method Room Air Weight: 194 lb 14.218 oz Body Mass Index (BMI) 32.9 Intake & Output: Intake and Output for Last 24 Hours 01/01/22 01/02/22 01/03/22 23:59 23:59 23:59 Intake Total 1120 / 1320 200 / 200 Balance 1120 / 1320 200 / 200 Lab / Micro Data Result Diagrams: 01/03/22 06:10 01/03/22 06:10 Labs: Laboratory Results - last 24 hr 01/03/22 06:10: WBC 11.8 H, RBC 5.25, Hgb 15.4 H, Hct 46.2, MCV 88.0, MCH 29.3, MCHC 33.3, RDW Std Deviation 43.3, RDW Coeff of Stacy 13.3, Plt Count 345, MPV 10.7, Immature Gran % (Auto) 0.600, Neut % (Auto) 69.3, Lymph % (Auto) 19.1, [place] % (Auto) 8.4, Eos % (Auto) 2.0, Baso % (Auto) 0.6, Absolute Neuts (auto) 8.2 H, Absolute Lymphs (auto) 2.26, Nucleated RBC % 0 01/03/22 06:10: Sodium 135 L, Potassium 3.6, Chloride 104, Carbon Dioxide 26.0, Anion Gap 5, BUN 25 H, Creatinine 0.75, Estim Creat Clear Calc 87.93, Est GFR (MDRD) Af Amer 109, Est GFR (MDRD) Non-Af 90, BUN/Creatinine Ratio 33.5 H, Glucose 106, Calcium 10.1 Physical Exam Const alert, oriented x3 and no apparent distress HEENT head/scalp atraumatic, moist oral mucous membranes and oropharynx normal Head and Scalp: normocephalic Mouth: oral and palatal mucosa normal Eyes PERRL, EOMs intact bilaterally and conjunctivae normal Neck no lymphadenopathy, supple and no JVD Resp normal respiratory effort, no retractions, no use of accessory muscles and clear to auscultation bilaterally Cardio regular rate, regular rhythm, S1 normal heart sound, S2 normal heart sound and no murmurs GI normal to inspection, nondistended, normoactive bowel sounds, soft to palpation, non-tender and non-distended Extremity normal to inspection, full ROM and no clubbing, cyanosis or edema Neuro oriented x3 Neuro Narrative: Expressive aphasia has largely resolved, as well as right facial droop and power in RUE is 4+/5. Sensorium / Orientation: awake and alert Psych affect normal Assessment & Plan Assessment/Plan (1) CVA (cerebral vascular accident): PLAN: Plan #Acute CVA * MRI showed CVA of the left pontine body * received tPA * on high intensity statin * repeat MRI after tPA showed no significant change in previous pontine stroke on the right with with the area being perhaps a bit more circumscribed and slightly enlarged compared to previous but overall fairly stable in comparison. * on PO aspirin 81mg daily * 2D echo: moderate concentric LVH and EF of 65%, with indeterminate diastolic function and lipomatous hypertrophy of hte atrial septum. Bubble study nega tive * PT/OT on board. Fall precautions * had which showed no evidence of afib * # Hypertension * newly diagnosed * On amlodipine, metoprolol and PO hydralazine * IV hydralazine as needed * monitor BP and adjust as needed * #Nicotine dependence: Counseled to quit especially in light of stroke. Nicotine patch DVT prophylaxis; SCDs Disposition: awaiting placement Charges/Coding Visit Charges Inpatient E&M: 32622 Subs Hosp L2
--- NOTE | 2022-01-03 10:47 | CASEMGMT ---
CHELSIE sent today's PT and OT notes as well as physicians progress note from today via [employer]. CHELSIE called and left a message for Adilene at [facility] to let her know SW sent updates and if she started pre-cert. Adilene then called CHELSIE right back. Adilene said she started pre-cert this am as she had to have an updated OT note. CHELSIE let Adilene HOLGUIN sent updated PT, OT, and progress note from today. Adilene said she will let CHELSIE know as soon as she hears from insurance. Plan: d/c to [facility] pending insurance approval. Harriet Torres JAVA TECHNICAL MANAGER FLO
--- NOTE | 2022-01-03 13:47 | CASEMGMT ---
CHELSIE spoke with patient and her letting them know we are just waiting on insurance to approve patient to go to [facility]. CHELSIE explained this could take a day or 2. Plan: [facility] Harriet ROSSI
[2022-01-03] MEDS: Nystatin Powder 15gm Bottle 1 APPLIC TOPICAL ×2 (14:36→22:13)
[2022-01-03] MEDS: Atorvastatin Calcium 40 MG Tablet PO (22:13)
[2022-01-04] VITALS (9 sets, daily range): BP systolic 120–133; BP diastolic 71–89; PULSE 68–78; RESP 16–18; TEMP 36.4–37.1; O2SAT 94–96; BMI 32.9
[2022-01-04 05:28] LABS: Absolute Lymphocyte Count 2.31 X10^3/uL (0.83-4.51); Absolute Neutrophil Count 7.2 X10^3/uL (2.0-7.7); Basophil# 0.07 X10^3/uL; Basophil% 0.6 % (0-1); Eosinophil# 0.28 X10^3/uL; Eosinophils% 2.6 % (0-5); Hematocrit 43.9 % (37-47); Hemoglobin 14.7 g/dL (12.0-15.0); Lymphocyte # 2.31 X10^3/ul (0.83-4.51); Lymphocyte % 21.3 % (19-41); Mean Corp Hgb Conc 33.5 g/dL (32-36); Mean Corpuscular Hgb 29.5 pg (27.0-32.0); Mean Platelet Vol. 10.6 fl (6.2-12.0); Monocyte# 0.94 X10^3/uL; Monocyte% 8.7 % (0-10); NRBC Flagged by Analyzer 0 % (0-5); Neutrophil # 7.16 X10^3/uL (2.7-7.7); Neutrophil % 66.2 % (47-70); Platelet Count 332 K/mm3 (150-450); RBC Distribution Width CV 13.6 % (11.6-14.6); RBC Distribution Width SD 43.9 fl (35.1-43.9); Red Blood Count 4.99 M/mm3 (4.2-5.4); White Blood Count 10.8 K/mm3 (4.4-11.0)
[2022-01-04] MEDS: Nystatin Powder 15gm Bottle 1 APPLIC TOPICAL (05:31)
[2022-01-04 05:56] LABS: Anion Gap 8 (5-15); BUN 35 mg/dL (7-18); BUN/Creat Ratio 43.9 RATIO (10-20); Calcium,Total 9.5 mg/dL (8.5-10.1); Chloride 105 mmol/L (98-107); EST Glomerular Filtration Rate 84 mL/min (>60); Est Glom Filt Rate - Afr Amer 101 mL/min (>60); Estimated Creatinine Clearance 82.43 ml/min; Glucose 110 mg/dL (74-106); Potassium 4.1 mmol/L (3.5-5.1); Sodium Level 136 mmol/L (136-145)
[2022-01-04] MEDS: guaiFENesin 600 MG Tablet PO (09:41)
[2022-01-04] MEDS: hydrALAZINE 25 MG Tablet PO ×2 (09:41→13:45)
[2022-01-04] MEDS: Metoprolol Tartrate 25 MG Tablet PO (09:41)
[2022-01-04] MEDS: Aspirin 81 MG TAB.CHEW PO (09:41)
[2022-01-04] MEDS: amLODIPine 10 MG Tablet PO (09:41)
[2022-01-04] MEDS: hydroCHLOROthiazide 25 MG Tablet PO (09:41)
[2022-01-04] MEDS: Acetaminophen 325 MG Tablet 650 MG PO (10:04)
--- NOTE | 2022-01-04 11:07 | PN.HOSP_ITS ---
Subjective Subjective Doing well, she is having slow recovery in her right leg as well as her right arm. She still has no fine motor skills in her right arm and control is limited Objective Data Objective Data Vital Signs: Vital Signs Temp Pulse Resp BP Pulse Ox O2 Del Method O2 Flow Rate 97.6 F L 78 18 133/83 H 95 Room Air 2 01/04/22 09:00 01/04/22 09:41 01/04/22 09:00 01/04/22 09:00 01/04/22 09:00 01/04/22 09:00 01/02/22 11:43 FiO2 94 12/30/21 04:00 Oxygen Flow Rate (L/min) 2 Oxygen Delivery Method Room Air Weight: 190 lb Body Mass Index (BMI) 32.9 Intake & Output: Intake and Output for Last 24 Hours 01/03/22 01/04/22 01/05/22 03:59 03:59 03:59 Intake Total 1320 / 1320 1020 / 1020 Balance 1320 / 1320 1020 / 1020 Lab / Micro Data Result Diagrams: 01/04/22 04:48 01/04/22 04:48 Labs: Laboratory Results - last 24 hr 01/04/22 04:48: WBC 10.8, RBC 4.99, Hgb 14.7, Hct 43.9, MCV 88.0, MCH 29.5, MCHC 33.5, RDW Std Deviation 43.9, RDW Coeff of Stacy 13.6, Plt Count 332, MPV 10.6, Immature Gran % (Auto) 0.600, Neut % (Auto) 66.2, Lymph % (Auto) 21.3, [place] % (Auto) 8.7, Eos % (Auto) 2.6, Baso % (Auto) 0.6, Absolute Neuts (auto) 7.2, Absolute Lymphs (auto) 2.31, Nucleated RBC % 0 01/04/22 04:48: Sodium 136, Potassium 4.1, Chloride 105, Carbon Dioxide 23.0, Anion Gap 8, BUN 35 H, Creatinine 0.80, Estim Creat Clear Calc 82.43, Est GFR (MDRD) Af Amer 101, Est GFR (MDRD) Non-Af 84, BUN/Creatinine Ratio 43.9 H, Glucose 110 H, Calcium 9.5 Physical Exam Narrative General: Alert, Oriented x3, Cooperative, No apparent distress HEENT: Atraumatic, PERRLA, EOMI, Normocephalic Oral: Moist Mucosa Neck: Supple, No JVD Lungs: Clear to auscultation, Normal air movement, No rhonchi, No wheeze, No rales Cardiovascular: Regular rate, Regular Rhythm, Normal S1, Normal S2, No murmurs Abdomen: Soft, Non Tender, Non-Distended, No Hepato-splenomegaly Extremities: No edema, Capillary Refill Less than 3 Seconds Skin: No rashes, No breakdown Musculoskeletal: No Tenderness to Palpation of Joints or Extremities Neurological: Cranial nerves II-XII grossly intact, aphasia is resolved, no fine motor skills in her right upper extremity however strength is around 4 out of 5. Right lower extremity strength is a 4+ out of 5 she is able to walk with's assistance Psych/Mental Status: Normal Affect, Appropriate Assessment & Plan Assessment/Plan (1) CVA (cerebral vascular accident): PLAN: Plan 1. 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 * on PO aspirin 81mg daily * 2D echo: moderate concentric LVH and EF of 65%, with indeterminate diastolic function and lipomatous hypertrophy of hte atrial septum. Bubble study negative * PT/OT on board. Fall precautions * had which showed no evidence of afib * Her hypertension is newly diagnosed, will continue with Norvasc, will transition to Coreg to see if we can get her off of her metoprolol and hydralazine. * Discussed with her the need to discontinue all tobacco products DVT: SCDs Disposition: awaiting placement for rehab which is going to be acutely necessary given the debilitating nature of her disability with the fact that she cannot utilize her right hand at all Charges/Coding Visit Charges Inpatient E&M: 52827 Subs Hosp L2
--- NOTE | 2022-01-04 11:17 | CASEMGMT ---
CHELSIE called Adilene at [facility]. She has not heard from insurance yet. She will check in with them after bit and get back to CHELSIE. Plan: Inpatient Rehab Unit pending insurance approval. Harriet Torres WEB ARCHITECT FLO
[2022-01-04 13:08] LABS: Protein C Antigen 112 % (60-150); Protein C, Functional 127 % (73-180)
--- NOTE | 2022-01-04 13:41 | DCINST_ITS ---
Discharge Instructions Diet Discharge Diet: No restrictions Activity Discharge Activity: Return to Normal Activity Dressing / Incision Call your doctor if you observe: Fever of 101 or Higher, Shortness of breath, Dizziness, Fainting spells, Swelling in the ankles, Chest pain and Increased palpitations (irregular heartbeat) Follow Up Care Test Results: Test results from this visit will be discussed in further detail at your follow- up appointment, if applicable. Discharge Plan Admission Admit Date/Time: 12/28/21 18:31 Attending Provider: Dino Enriquez Primary Care Provider: Carrie Physician,Vidhya Primary Consulting Providers: Anisha Kohler ; Dieter Landeros ; Bin Garcia ; Carlos Story ; Prem Aguayo ; Johanna Givens NP ; Brii Pryor ; Perez Gamboa ; Jeimy Devries Discharge Orders/Prescriptions Prescriptions: New amlodipine 10 mg Tablet 10 mg PO DAILY Qty: 0 0RF aspirin 81 mg Tablet,Chewable 81 mg PO BREAKFAST Qty: 0 0RF atorvastatin 40 mg Tablet 40 mg PO QHS Qty: 0 0RF carvedilol 6.25 mg Tablet 6.25 mg PO BID Qty: 0 0RF nicotine 21 mg/24 hr Patch 24 Hour 21 mg transdermal DAILY Qty: 0 0RF hydrochlorothiazide 25 mg Tablet 25 mg PO DAILY Qty: 0 0RF Referrals / Follow Up: Care Physician,Vidhya Primary [Primary Care Provider] - NOT,DEFINED [Non-Staff] - Disposition Disposition (needs filled in before D/C Order can be placed): Inpatient Rehab Unit/Facility
--- NOTE | 2022-01-04 13:55 | DS.PCM_ITS ---
Providers Date of Admission: 12/28/21 Primary Care Physician: No Primary Care Phys Consultations 12/28/21 17:55 Consult: Gray Tender / Pulmonary Medicine Routine Consulting Provider: Pulmonary Obdulia Reason for Consult: stroke for alteplase EMERGENT Consult: Yes Notified: Yes Date Notified: 12/28/21 Time Notified: 17:55 Method of Notification: Verbal Comments:: If admitted, Hospitalist will consult Gray Tender 12/28/21 19:08 Consult: Gray Tender / Pulmonary Medicine Routine Consulting Provider: Parish Steiner Reason for Consult: stroke for alteplase EMERGENT Consult: Yes Notified: Yes Date Notified: 12/28/21 Time Notified: 18:16 Method of Notification: Text Reason For Visit: CVA Diagnosis Discharge Diagnosis (1) CVA (cerebral vascular accident): Status: Acute Code(s): I63.9 - Cerebral infarction, unspecified Plan 1. 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 * on PO aspirin 81mg daily * 2D echo: moderate concentric LVH and EF of 65%, with indeterminate diastolic function and lipomatous hypertrophy of hte atrial septum. Bubble study negative * PT/OT on board. Fall precautions * had which showed no evidence of afib * Her hypertension is newly diagnosed, will continue with Norvasc, will transition to Coreg to see if we can get her off of her metoprolol and hydralazine. * Discussed with her the need to discontinue all tobacco products DVT: SCDs Disposition: awaiting placement for rehab which is going to be acutely necessary given the debilitating nature of her disability with the fact that she cannot u tilize her right hand at all Medications at Discharge Home Medications amlodipine 10 mg tablet 10 mg PO DAILY #0 tabs 01/04/22 aspirin 81 mg chewable tablet 81 mg PO BREAKFAST #0 tabs 01/04/22 atorvastatin 40 mg tablet 40 mg PO QHS #0 tabs 01/04/22 carvedilol 6.25 mg tablet 6.25 mg PO BID #0 tabs 01/04/22 hydrochlorothiazide 25 mg tablet 25 mg PO DAILY #0 tabs 01/04/22 nicotine 21 mg/24 hr daily transdermal patch 21 mg transdermal DAILY #0 ea 01/04/22 Hospital Course Operations None Procedures 2-D Echocardiogram and Transesophageal Echo Summary of Care Provided Minutes Spent on Discharge: 45 Hospital Course: Per HPI: The patient is a 41 y/o F w/ PMHx: Tobacco use, Obesity who presents to the [facility] ED on 12/28/21 with history of onset R sided weakness and facial droop with last known well at 1630 on day of presentation prompting ED evaluation. Initial NIHSS 6 per ED physician however patient did wax and wane and was initially improved upon Hospitalist evaluation but had recurrent sxs with NIHSS 5 therefore decision to initiate TPA given closing window and frequently recurrent sxs that would be life long debilitating. She does recent history of upper respiratory type infection with frontal headache, congestion, rhinorrhea, sore throat with mild cough, fatigue and malaise with no specific fevers or chills nor any nausea, emesis or diarrhea and does also report that she has never been vaccinated against COVID.? Her who is present denies any recent symptoms himself.? She denies taking any control. Work-up in the ED included T 97, heart rate 83, BP 184/119, respiratory rate 18, 97% on 2 L nasal cannula, CBC with WBC 17.2, Hgb 15.2, Plts 339 with L shift, coags unremarkable, BMP with glucose 110, troponin 8, EKG with sinus rhythm with nonspecific changes with no acute evidence of ischemia CT head with no acute intracranial findings, CTA head and neck with no acute findings. In the ED patient initiated on TPA. Stroke alert called on the patient and as noted initially given improvement deferred TPA but given recurrent sxs pathway eventually initiated.? Discussed current status with ED physician and given age requested COVID PCR, urine drug screen and hypercoagulable panel to be cautious as well as given limitation of inability to draw labs. Hospital Course: 1.? 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 * on PO aspirin 81mg daily * 2D echo: moderate concentric LVH and EF of 65%, with indeterminate diastolic function and lipomatous hypertrophy of hte atrial septum. Bubble study negative * PT/OT on board. Fall precautions * had? which showed no evidence of afib * Her hypertension is newly diagnosed, will continue with Norvasc, will transition to Coreg to see if we can get her off of her metoprolol and hydralazine. * Discussed with her the need to discontinue all tobacco products Disposition: Discussed with her and her mother the plan for discharge today to rehab unit, they expressed understanding of the risk benefits of going and would like to go today if possible. Weight / BMI Weight Weight: 190 lb Body Mass Index (BMI) 32.9 ABG / Lab / Microbiology Data Result Diagrams: 01/04/22 04:48 01/04/22 04:48 Laboratory: Laboratory Results - last 24 hr 01/04/22 04:48: WBC 10.8, RBC 4.99, Hgb 14.7, Hct 43.9, MCV 88.0, MCH 29.5, MCHC 33.5, RDW Std Deviation 43.9, RDW Coeff of Stacy 13.6, Plt Count 332, MPV 10.6, Immature Gran % (Auto) 0.600, Neut % (Auto) 66.2, Lymph % (Auto) 21.3, [place] % (Auto) 8.7, Eos % (Auto) 2.6, Baso % (Auto) 0.6, Absolute Neuts (auto) 7.2, Absolute Lymphs (auto) 2.31, Nucleated RBC % 0 01/04/22 04:48: Sodium 136, Potassium 4.1, Chloride 105, Carbon Dioxide 23.0, Anion Gap 8, BUN 35 H, Creatinine 0.80, Estim Creat Clear Calc 82.43, Est GFR (MDRD) Af Amer 101, Est GFR (MDRD) Non-Af 84, BUN/Creatinine Ratio 43.9 H, Glucose 110 H, Calcium 9.5 D/C Instructions Discharge Diet: No restrictions Call your doctor if you observe: Fever of 101 or Higher, Shortness of breath, Dizziness, Fainting spells, Swelling in the ankles, Chest pain and Increased palpitations (irregular heartbeat) Meaningful Use Info Meaningful Use Diagnoses (Choose all that apply): None applicable Discharge Plan Admission Admit Date/Time: 12/28/21 18:31 Attending Provider: Dino Enriquez Primary Care Provider: Care Physician,No Primary Consulting Providers: Anisha Kohler ; Dieter Landeros ; Bin Garcia ; Carlos Story ; Prem Aguayo ; Johanna Givens NP ; Brii Pryor ; Perez Gamboa ; Jeimy Devries Discharge Orders/Prescriptions Prescriptions: New amlodipine 10 mg Tablet 10 mg PO DAILY Qty: 0 0RF aspirin 81 mg Tablet,Chewable 81 mg PO BREAKFAST Qty: 0 0RF atorvastatin 40 mg Tablet 40 mg PO QHS Qty: 0 0RF carvedilol 6.25 mg Tablet 6.25 mg PO BID Qty: 0 0RF nicotine 21 mg/24 hr Patch 24 Hour 21 mg transdermal DAILY Qty: 0 0RF hydrochlorothiazide 25 mg Tablet 25 mg PO DAILY Qty: 0 0RF Referrals / Follow Up: Care Physician,No Primary [Primary Care Provider] - NOT,DEFINED [Non-Staff] - Disposition Disposition (needs filled in before D/C Order can be placed): Inpatient Rehab Unit/Facility Charges/Coding Visit Charges Inpatient E&M: 61292 Disch Hosp
--- NOTE | 2022-01-04 14:23 | PHA.DC.MR ---
Pharmacy Service has performed discharge medication reconciliation for this patient. The patient's discharge medication list was reviewed for discrepancies and discrepancies were resolved. Home Medications amlodipine 10 mg tablet 10 mg PO DAILY #0 tabs 01/04/22 aspirin 81 mg chewable tablet 81 mg PO BREAKFAST #0 tabs 01/04/22 atorvastatin 40 mg tablet 40 mg PO QHS #0 tabs 01/04/22 carvedilol 6.25 mg tablet 6.25 mg PO BID #0 tabs 01/04/22 hydrochlorothiazide 25 mg tablet 25 mg PO DAILY #0 tabs 01/04/22 nicotine 21 mg/24 hr daily transdermal patch 21 mg transdermal DAILY #0 ea 01/04/22
--- NOTE | 2022-01-04 14:50 | CASEMGMT ---
CHELSIE received a call from Adilene at [facility] and patient was approved. CHELSIE notified physician, patient, her mom, RN, and medical secretary receptionist. CHELSIE sent orders and COVID test via [employer]. CHELSIE spoke with patient and her mom. CHELSIE let them know SW is not sure if insurance will pay for wheelchair van transport to [place]. Family feels like they can transport patient. CHELSIE let them know that would be fine. CHELSIE called Adilene at [facility] and let her know family will be bringing patient. CHELSIE obtained directions on where family needs to go once they get to [facility]. CHELSIE gave directions to patient and her mom. Plan: d/c to [facility]. Patient's family transported patient via private vehicle. Harriet ROSSI
--- NOTE | 2022-01-04 15:21 | NURSING ---
This RN called and gave report to CHARLIE Whyte at [facility].
[2022-01-04 16:49] LABS: Anti-Cardiolipin Ab, IgG, Qn < 9 GPL U/mL (0-14); Anti-Cardiolipin Ab, IgM, Qn 22 MPL U/mL (0-12); Anti-Thrombin 3 AG, Immunol 101 % (72-124); Antithrombin 3 Function 116 % (75-135); Beta-2-Glycoprotein I IgA <9 (0-25); Beta-2-Glycoprotein I IgG <9 (0-20); Beta-2-Glycoprotein I IgM <9 (0-32)
== END 2022-01-04 15:06 | DRG 62 ==
LOC: ED 18:20 → ICU 18:30 → PCU 01-01 06:53
PROVIDERS: Internal Medicine; Student in an Organized Health Care Education/Training Program; Admitting Provider Family Medicine; Emergency Provider Emergency Medicine; Visit Provider Family Medicine
DX: I63.9 Cerebral infarction, unspecified (principal); I16.1 Hypertensive emergency; E66.9 Obesity, unspecified; F17.210 Nicotine dependence, cigarettes, uncomplicated; I10 Essential (primary) hypertension; Z20.822 Contact with and (suspected) exposure to COVID-19; R29.706 NIHSS score 6; Z68.33 Body mass index [BMI] 33.0-33.9, adult; M62.81 Muscle weakness (generalized); R29.810 Facial weakness; R47.1 Dysarthria and anarthria
CPT/HCPCS: 36415; 51702; 70450; 70496; 70498; 70551; 71045; 80048; 80053; 80061; 80307; 81025; 81240; 83036; 83735; 84443; 84484; 85025; 85300; 85301; 85302; 85303; 85610; 85730; 86146; 86147; 87426; 87635; 92507; 92522; 92526; 92610; 93005; 93306; 93312; 93320; 93325; 94762; 95819; 97110; 97116; 97162; 97167; 97530; 97535; 97802; 99251; 99285; J2997; J7030; Q9967; A4216; G0463; J2405; J3490; U0003; U0005